=== PATIENT | female | born 1975 | race Two or more races ===

== ENCOUNTER 2021-05-18 01:49 | Inpatient (IN) | payer SELFPAY ==
[2021-05-18] VITALS (11 sets, daily range): BP systolic 101–122; BP diastolic 51–67
[~2021-05-18] VITALS: Ht 162.6 cm; Wt 94.0 kg
[~2021-05-18 01:49] MED LIST: FERR236T2 PO; IRON150C11 PO; OXYC1TAB15 PO
--- NOTE | 2021-05-18 02:52 | ED.ADGEN ---
Past Medical History Past Medical History: No Pertinent History Past Surgical History: No Surgical History Smoking Status: Never Smoker Alcohol Use: None General Adult EDM: Chief Complaint: ABDOMINAL PAIN HPI: HPI: Patient is a 46 year old female coming in for upper abdominal pain that radiates around the sides starting about 3 hours prior to arrival. Few episodes of emesis. No diarrhea. Patient's last p.o. intake was a sandwich about 2.5 hours prior to symptom onset. Patient is not take anything for pain. Denies any daily NSAID use, alcohol or tobacco use. Patient states that this time when she had blood spicy. No past abdominal surgical history. Review of Systems: Review of Systems: All other systems within normal limits except for as noted in the HPI Current Medications: Current Medications Medications (Trade) Dose Ordered Sig/Brock Start Time Stop Time Status Last Admin Dose Admin Fentanyl Citrate (Fentanyl 2ml Vial) 75 mcg 1X ONCE 05/18/21 03:30 05/18/21 03:31 DC 05/18/21 03:07 75 MCG Info (CONTRAST GIVEN -- Rx MONITORING) 1 each PRN DAILY PRN 05/18/21 04:15 05/20/21 04:14 Iohexol (Omnipaque 300 Mg/ml) 75 ml 1X ONCE 05/18/21 05:00 05/18/21 05:01 DC 05/18/21 04:10 75 ML Multi-Ingredient Mouthwash/Gargle (Gi Cocktail) 20 ml 1X ONCE 05/18/21 03:30 05/18/21 03:31 DC 05/18/21 03:09 20 ML Ondansetron HCl (Zofran) 4 mg 1X ONCE 05/18/21 03:30 05/18/21 03:31 DC 05/18/21 03:08 4 MG Sodium Chloride 1,000 ml @ 1,000 mls/hr 1X ONCE 05/18/21 03:30 05/18/21 04:29 DC 05/18/21 03:07 1,000 MLS/HR Allergies: Allergies: Allergies Coded Allergies Type Severity Reaction Last Updated Verified No Known Drug Allergies 05/31/19 No Physical Exam: PE: Constitutional: Well developed, well nourished, no acute distress, non-toxic appearance. [] HENT: Normocephalic, atraumatic, bilateral external ears normal, nose normal. [] Eyes: PERRLA, conjunctiva normal, no discharge. [] Neck: No rigidity, supple, no stridor. [] Cardiovascular: Regular rate and rhythm, brisk cap refill [] Lungs & Thorax: Non labored symmetric respirations, no tachypnea or respiratory distress [] Abdomen: Soft, nondistended, epigastric tenderness and guarding, unable to tolerate Vaughan's sign. Skin: Warm, dry, no erythema, no rash. [] Back: Unremarkable Extremities: No deformities, range of motion grossly intact, no lower extremity edema [] Neurologic: Alert and oriented X 3, no focal deficits noted. [] Psychologic: Affect normal, judgement normal, mood normal. [] Current Patient Data: Labs: Laboratory Tests Test 05/18/21 02:30 05/18/21 02:31 05/18/21 03:00 Urine Collection Type Unknown Urine Color Yellow Urine Clarity Clear Urine pH 7.5 (<5.0-8.0) Urine Specific [place] 1.020 (1.000-1.030) Urine Protein Trace mg/dL (NEG-TRACE) Urine Glucose (UA) Negative mg/dL (NEG) Urine Ketones (Stick) Trace mg/dL (NEG) Urine Blood Negative (NEG) Urine Nitrite Negative (NEG) Urine Bilirubin Negative (NEG) Urine Urobilinogen Dipstick 0.2 mg/dL (0.2 mg/dL) Urine Leukocyte Esterase Negative (NEG) Urine RBC 0 /HPF (0-2) Urine WBC Occ /HPF (0-4) Urine Squamous Epithelial Cells Mod /LPF Urine Bacteria Few /HPF (0-FEW) Urine Mucus Mod /LPF POC Urine HCG, Qualitative Hcg negative (Negative) White Blood Count 7.1 x10^3/uL (4.0-11.0) Red Blood Count 3.92 x10^6/uL (3.50-5.40) Hemoglobin 5.6 g/dL (12.0-15.5) *L Hematocrit 20.5 % (36.0-47.0) L Mean Corpuscular Volume 52 fL (79-100) L Mean Corpuscular Hemoglobin 14 pg (25-35) L Mean Corpuscular Hemoglobin Concent 27 g/dL (31-37) L Red Cell Distribution Width 22.6 % (11.5-14.5) H Platelet Count 190 x10^3/uL (140-400) Neutrophils (%) (Auto) 81 % (31-73) H Lymphocytes (%) (Auto) 14 % (24-48) L Monocytes (%) (Auto) 4 % (0-9) Eosinophils (%) (Auto) 0 % (0-3) Basophils (%) (Auto) 1 % (0-3) Neutrophils # (Auto) 5.7 x10^3/uL (1.8-7.7) Lymphocytes # (Auto) 1.0 x10^3/uL (1.0-4.8) Monocytes # (Auto) 0.3 x10^3/uL (0.0-1.1) Eosinophils # (Auto) 0.0 x10^3/uL (0.0-0.7) Basophils # (Auto) 0.0 x10^3/uL (0.0-0.2) Platelet Estimate Adequate (ADEQUATE) Giant Platelets Occ Polychromasia Slight Hypochromasia Marked Basophilic Stippling Present Anisocytosis Mod Microcytosis Marked Tear Drop Cells Occ Ovalocytes Occ Rouleaux Present Sodium Level 140 mmol/L (136-145) Potassium Level 3.3 mmol/L (3.5-5.1) L Chloride Level 103 mmol/L (98-107) Carbon Dioxide Level 27 mmol/L (21-32) Anion Gap 10 (6-14) Blood Urea Nitrogen 14 mg/dL (7-20) Creatinine 0.8 mg/dL (0.6-1.0) Estimated GFR (Cockcroft-Gault) 77.6 BUN/Creatinine Ratio 18 (6-20) Glucose Level 155 mg/dL (70-99) H Lactic Acid Level 1.8 mmol/L (0.4-2.0) Calcium Level 8.5 mg/dL (8.5-10.1) Iron Level 9 ug/dL (50-170) L Total Iron Binding Capacity 435 ug/dL (250-450) Iron Saturation 2 % (15-34) L Total Bilirubin 0.4 mg/dL (0.2-1.0) Aspartate Amino Transferase (AST) 40 U/L (15-37) H Alanine Aminotransferase (ALT) 35 U/L (14-59) Alkaline Phosphatase 85 U/L (46-116) Total Protein 7.1 g/dL (6.4-8.2) Albumin 3.1 g/dL (3.4-5.0) L Albumin/Globulin Ratio 0.8 (1.0-1.7) L Lipase 200 U/L (73-393) Laboratory Tests 05/18/21 03:00 Laboratory Tests 05/18/21 03:00 Vital Signs: Vital Signs Date Time Temp Pulse Resp B/P (MAP) Pulse Ox O2 Delivery O2 Flow Rate FiO2 05/18/21 04:53 64 16 105/62 (76) 100 Room Air 05/18/21 02:10 98.1 98.1 EKG: EKG: [] Heart Score: C/O Chest Pain: No Risk Factors: Risk Factors: DM, Current or recent (<one month) smoker, HTN, HLP, family history of CAD, obesity. Risk Scores: Score 0 - 3: 2.5% MACE over next 6 weeks - Discharge Home Score 4 - 6: 20.3% MACE over next 6 weeks - Admit for Clinical Observation Score 7 - 10: 72.7% MACE over next 6 weeks - Early Invasive Strategies Radiology/Procedures: Radiology/Procedures: [facility] [address] [place] [address] IMAGING REPORT Signed PATIENT: RHONA GAN FACCOUNT: [id number] : 1975 LOCATION: ER AGE: 46 SEX: F EXAM STATUS: REG ER ORD. PHYSICIAN: STEHPEN WORKMAN MD REASON: upper abd pain and emesis, OMNI 300 75 ML IV PROCEDURE: CT ABD PELV W/ IV CONTRST ONLY EXAMINATION: CT abdomen and pelvis with IV contrast. INDICATION:46 years, Female, upper abdominal pain. TECHNIQUE: Axial CT images of the abdomen and pelvis were obtained. Coronal and sagittal reformatted performed. COMPARISON: None. Exposure: One or more of the following individualized dose reduction techniques were utilized for this examination: 1. Automated exposure control 2. Adjustment of the mA and/or kV according to patient size 3. Use of iterative reconstruction technique. FINDINGS: LOWER CHEST: Unremarkable. ABDOMEN/PELVIS: Gallbladder hydrops with mild asymmetric wall thickening and submucosal edema. There is a partially calcified 1.7 cm cholelithiasis in the gallbladder neck. No significant pericholecystic fat stranding. No biliary ductal dilation. Mild periportal edema. No suspicious focal hepatic lesion. Spleen, pancreas, adrenal glands and kidneys are unremarkable. No bowel obstruction. Normal appendix. Normal caliber abdominal aorta. Mesenteric arteries and portal veins are patent. No pneumoperitoneum or ascites. No lymphadenopathy in the abdomen or pelvis by size criteria. Unremarkable uterus and urinary bladder. Benign-appearing 4.5 cm right adnexal cyst. MUSCULOSKELETAL STRUCTURES: No acute osseous process. IMPRESSION: 1. Overall findings may represent early acute calculus cholecystitis. Other differential consideration includes acute hepatitis with reactive changes of the gallbladder. Clinical correlation is advised and may consider nuclear HIDA scan, as warranted. 2. Benign-appearing 4.5 cm right adnexal cyst. Benign, no follow-up required. White paper of the ACR incidental findings, committe II on adnexal findings ((J Am Kathe Radiol 2013;10:675-68) Electronically signed by: Nathan Galaviz MD (05/18/2021 4:32 AM) [facility] DICTATED and SIGNED BY: NATHAN GALAVIZ MD DATE: 05/18/21 [id number] [][facility] [address] [place] [address] IMAGING REPORT Signed PATIENT: RHONA GAN FACCOUNT: [id number] : 1975 LOCATION: ER AGE: 46 SEX: F EXAM STATUS: REG ER ORD. PHYSICIAN: STEPHEN WORKMAN MD REASON: acute cholecystitis PROCEDURE: ABDOMEN LTD EXAMINATION: US ABDOMEN LIMITED INDICATION: 46 years, Female, acute cholecystitis. COMPARISON: Same day CT abdomen and pelvis TECHNIQUE: Grayscale, color Doppler and limited spectral Doppler images of the right upper quadrant were obtained. FINDINGS: LIVER: SIZE (LENGTH): 15 cm. ECHOGENICITY: Normal PARENCHYMA: Homogeneous echotexture. No discrete focal lesion. INTRAHEPATIC BILE DUCTS: Nondilated. PORTAL VEIN: Patent with normal hepatopedal flow. GALLBLADDER: GALLBLADDER WALL THICKNESS: 6 mm MORPHOLOGY: Gallbladder hydrops. Asymmetric wall thickening. No significant pericholecystic free fluid. LUMEN: Cholelithiasis the gallbladder neck. COMMON BILE DUCT DIAMETER: 2.5 mm. RIGHT KIDNEY: MEASURES: 12.5 cm in length. MORPHOLOGY/PARENCHYMA: Normal corticomedullary differentiation with no shadowing calculus or discrete masses. COLLECTING SYSTEM: No hydronephrosis. PANCREAS: VISUALIZED PORTIONS: Head and proximal body. APPEARANCE: Within normal limits. OTHER: RETROPERITONEUM, INFERIOR VENA CAVA: Normal caliber. AORTA: Normal caliber. FLUID:No free fluid. IMPRESSION: Gallbladder hydrops with asymmetric wall thickening and large cholelithiasis the neck. No significant pericholecystic fluid. Findings equivocal for acute calculus cholecystitis. Electronically signed by: Nathan Galaviz MD (05/18/2021 5:36 AM) [facility] DICTATED and SIGNED BY: NATHAN GALAVIZ MD DATE: 05/18/21 [id number] 0 Course & Med Decision Making: Course & Med Decision Making Pertinent Labs and Imaging studies reviewed. (See chart for details) Resolve CT and ultrasound findings suggest a possible early acute cholecystitis. Will admit for blood transfusion and further evaluation of gallbladder [] Dragon Disclaimer: Dragon Disclaimer: This electronic medical record was generated, in whole or in part, using a voice recognition dictation system. Departure Departure Impression: Primary Impression: Anemia Additional Impression: Acute cholecystitis Disposition: ADMITTED INPATIENT Admitting Physician: NAOMIE Condition: STABLE Referrals: NO PCP (PCP) Problem Qualifiers STEPHEN WORKMAN MD May 18, 2021 02:52
[2021-05-18 02:59] LABS: BILIRUBIN,URINE NEGATIVE (NEG); CLARITY,URINE CLEAR; COLOR,URINE YELLOW; NITRITE,URINE NEGATIVE (NEG); PH,URINE 7.5 (<5.0-8.0); PROTEIN,URINE TRACE mg/dL (NEG-TRACE); UROBILINOGEN,URINE 0.2 mg/dL (0.2 mg/dL)
[2021-05-18 03:01] LABS: BACTERIA,URINE FEW /HPF (0-FEW); RBC,URINE 0 /HPF (0-2); WBC,URINE OCC /HPF (0-4)
[2021-05-18 03:08] LABS: BASO % 1 % (0-3); EOS % 0 % (0-3); HEMATOCRIT 20.5 % (36.0-47.0); LYMPH % 14 % (24-48); MEAN CORPUSCULAR HEMOGLOBIN 14 pg (25-35); MEAN CORPUSCULAR HGB CONC 27 g/dL (31-37); MEAN CORPUSCULAR VOLUME 52 fL (79-100); MONO # 0.3 x10^3/uL (0.0-1.1); MONO % 4 % (0-9); NEUT # 5.7 x10^3/uL (1.8-7.7); NEUT % 81 % (31-73); PLATELET COUNT 190 x10^3/uL (140-400); RED BLOOD COUNT 3.92 x10^6/uL (3.50-5.40); RED CELL DISTRIBUTION WIDTH 22.6 % (11.5-14.5); WHITE BLOOD COUNT 7.1 x10^3/uL (4.0-11.0)
[2021-05-18 03:15] LABS: HEMOGLOBIN 5.6 g/dL (12.0-15.5)
[2021-05-18 03:26] LABS: CALCIUM 8.5 mg/dL (8.5-10.1); CREATININE 0.8 mg/dL (0.6-1.0); GFR 77.6; POTASSIUM 3.3 mmol/L (3.5-5.1)
[2021-05-18] MEDS ORDERED: ONDANSETRON PF 4 MG/2 ML VIAL. IVP ONE (03:30)
[2021-05-18] MEDS ORDERED: IV NORMAL SALINE 1000ML BAG 1,000 ML IV ONE (03:30)
[2021-05-18] MEDS ORDERED: fentaNYL PF VIAL 100 MCG/2 ML VIAL IVP ONE (03:30)
[2021-05-18] MEDS ORDERED: LIDO:MAALOX 1:1 20 ML SINGLE DOSE. SWSW ONE (03:30)
[2021-05-18 03:31] LABS: ALBUMIN 3.1 g/dL (3.4-5.0); ALBUMIN/GLOBULIN RATIO 0.8 (1.0-1.7); TOTAL BILIRUBIN 0.4 mg/dL (0.2-1.0); TOTAL PROTEIN 7.1 g/dL (6.4-8.2)
[2021-05-18] MEDS ORDERED: CONTRAST GIVEN. MC PRN (04:15)
--- NOTE | 2021-05-18 04:34 | RAD ---
EXAMINATION: CT abdomen and pelvis with IV contrast. INDICATION:46 years, Female, upper abdominal pain. TECHNIQUE: Axial CT images of the abdomen and pelvis were obtained. Coronal and sagittal reformatted performed. COMPARISON: None. Exposure: One or more of the following individualized dose reduction techniques were utilized for thi s examination: 1. Automated exposure control 2. Adjustment of the mA and/or kV according to patient size 3. Use of iterative reconstruction technique. FINDINGS: LOWER CHEST: Unremarkable. ABDOMEN/PELVIS: Gallbladder hydrops with mild asymmetric wall thickening and submucosal edema. There is a partially c alcified 1.7 cm cholelithiasis in the gallbladder neck. No significant pericholecystic fat stranding. No biliary ductal dilation. Mild periportal edema. No suspicious focal hepatic lesion. Spleen, pancreas, adrenal glands and kidneys are unremarkable. No bowel obstruction. Normal appendix. Normal caliber abdominal aorta. Mesenteric arteries and portal v eins are patent. No pneumoperitoneum or ascites. No lymphadenopathy in the abdomen or pelvis by size criteria. Unremarkable uterus and urinary bladder. Benign-appearing 4.5 cm right adnexal cyst. MUSCULOSKELETAL STRUCTURES: No acute osseous process. IMPRESSION: 1. Overall findings may represent early acute calculus cholecystitis. Other differential considerati on includes acute hepatitis with reactive changes of the gallbladder. Clinical correlation is advised and may consider nuclear HIDA scan, as warranted. 2. Benign-appearing 4.5 cm right adnexal cyst. Benign, no follow-up required. White paper of the ACR incidental findings, committe II on adnexal findings ((J Am Kathe Radiol 2013;1 0:675-68) Electronically signed by: Evelio Galaviz MD (05/18/2021 4:32 AM) [facility]
[2021-05-18 04:44] LABS: ANISOCYTOSIS MOD; HYPOCHROMIA MARKED; PLT ESTIMATE ADEQUATE (ADEQUATE); POLYCHROMASIA SLIGHT
[2021-05-18 04:45] LABS: MICROCYTOSIS MARKED
[2021-05-18 04:46] LABS: OVALOCYTES OCC; ROULEAUX PRESENT; TEAR DROP CELLS OCC
[2021-05-18] MEDS ORDERED: IOHEXOL 300 MG/ML 100ML VIAL. IV ONE (05:00)
--- NOTE | 2021-05-18 05:38 | RAD ---
EXAMINATION: US ABDOMEN LIMITED INDICATION: 46 years, Female, acute cholecystitis. COMPARISON: Same day CT abdomen and pelvis TECHNIQUE: Grayscale, color Doppler and limited spectral Doppler images of the right upper quadrant w ere obtained. FINDINGS: LIVER: SIZE (LENGTH): 15 cm. ECHOGENICITY: Normal PARENCHYMA: Homogeneous echotexture. No discrete focal lesion. INTRAHEPATIC BILE DUCTS: Nondilated. PORTAL VEIN: Patent with normal hepatopedal flow. GALLBLADDER: GALLBLADDER WALL THICKNESS: 6 mm MORPHOLOGY: Gallbladder hydrops. Asymmetric wall thickening. No significant pericholecystic free flui d. LUMEN: Cholelithiasis the gallbladder neck. COMMON BILE DUCT DIAMETER: 2.5 mm. RIGHT KIDNEY: MEASURES: 12.5 cm in length. MORPHOLOGY/PARENCHYMA: Normal corticomedullary differentiation with no shadowing calculus or discrete masses. COLLECTING SYSTEM: No hydronephrosis. PANCREAS: VISUALIZED PORTIONS: Head and proximal body. APPEARANCE: Within normal limits. OTHER: RETROPERITONEUM, INFERIOR VENA CAVA: Normal caliber. AORTA: Normal caliber. FLUID:No free fluid. IMPRESSION: Gallbladder hydrops with asymmetric wall thickening and large cholelithiasis the neck. No significant pericholecystic fluid. Findings equivocal for acute calculus cholecystitis. Electronically signed by: Evelio Galaviz MD (05/18/2021 5:36 AM) [facility]
[2021-05-18] MEDS ORDERED: ONDANSETRON PF 4 MG/2 ML VIAL. IVP PRN ×2 (05:45→10:15)
[2021-05-18] MEDS ORDERED: MORPHINE SULFATE 4 MG/ML INJ. IVP PRN (05:45)
[2021-05-18] MEDS ORDERED: PIPERACILLIN/TAZOBACTAM 3.375 GM in IV NORMAL SALINE 50ML 50 ML IV ONE (06:00)
[2021-05-18] MEDS: IV NORMAL SALINE 1000ML BAG 1,000 ML IV SCH (06:32)
[2021-05-18] MEDS ORDERED: MORPHINE SULFATE 2 MG/ML INJ. IV PRN ×2 (10:15)
[2021-05-18] MEDS ORDERED: ELECTROLYTE (NON-ICU) PROTOCOL. MC PRN (10:15)
[2021-05-18] MEDS ORDERED: ACETAMINOPHEN 325 MG TABLET. PO PRN (10:15)
[2021-05-18] MEDS ORDERED: ZOLPIDEM 5 MG TABLET. PO PRN (10:15)
[2021-05-18] MEDS ORDERED: PIP/TAZO PER PHARMACY MC PRN (10:15)
[2021-05-18] MEDS ORDERED: CALCIUM CARBONATE 500 MG TAB.CHEW PO PRN (10:15)
[2021-05-18] MEDS ORDERED: PROCHLORPERAZINE 10 MG/2 ML VIAL. IVP PRN (10:15)
[2021-05-18] MEDS: IRON POLYSACCHARIDE COMPLEX 150 MG CAPSULE PO SCH (11:07)
[2021-05-18] MEDS: PIPERACILLIN/TAZOBACTAM 3.375 GM in IV NORMAL SALINE 50ML 50 ML IV SCH ×2 (11:07→19:11)
[2021-05-18] MEDS: PANTOPRAZOLE IV PUSH 40 MG VIAL. IVP SCH (11:08)
--- NOTE | 2021-05-18 14:01 | PDOC2 ---
CONSULT Date of Consult Date of Consult DATE: 05/18/21 TIME: 13:55 Reason for Consult Reason for Consult: Upper abdominal pain, cholelithiasis, anemia History of Present Illness Reason for Visit: This is a 46-year-old female who presents with new onset of upper abdominal pain after eating yesterday. She claims she never had pain like this before. It did not resolve quickly and so she came to the emergency room. Imaging studies reveal a gallstone and some features of cholecystitis. Biliary tract otherwise appears normal. Liver function studies were normal. However the most profound abnormality was hemoglobin of 5.6. With significant microcytic indices and low iron suggestive of a chronic anemia. She relates that she has been anemic in the past with pregnancies. She is not taking any medications presently for anemia. She has never had a blood transfusion as far she remembers. She denies any hematemesis, melena, hematochezia, hematuria but does admit to regular menstrual periods. Past Medical History Cardiovascular: No pertinent hx Pulmonary: No pertinent hx Heme/Onc: Anemia NOS Infectious disease: No pertinent hx Family History Family History: Hypertension Social History ALCOHOL: none Drugs: None Current Problem List Problem List Problems Medical Problems: (1) Anemia affecting 10th Status: Acute Current Medications Current Medications Current Medications Ondansetron HCl (Zofran) 4 mg 1X ONCE IVP Last administered on 05/18/21at 03:08; Start 05/18/21 at 03:30; Stop 05/18/21 at 03:31; Status DC Fentanyl Citrate (Fentanyl 2ml Vial) 75 mcg 1X ONCE IVP Last administered on 05/18/21at 03:07; Start 05/18/21 at 03:30; Stop 05/18/21 at 03:31; Status DC Sodium Chloride 1,000 ml @ 1,000 mls/hr 1X ONCE IV Last administered on 05/18/21at 03:07; Start 05/18/21 at 03:30; Stop 05/18/21 at 04:29; Status DC Multi-Ingredient Mouthwash/Gargle (Gi Cocktail) 20 ml 1X ONCE SWSW Last administered on 05/18/21at 03:09; Start 05/18/21 at 03:30; Stop 05/18/21 at 03:31; Status DC Iohexol (Omnipaque 300 Mg/ml) 75 ml 1X ONCE IV Last administered on 05/18/21at 04:10; Start 05/18/21 at 05:00; Stop 05/18/21 at 05:01; Status DC Info (CONTRAST GIVEN -- Rx MONITORING) 1 each PRN DAILY PRN MC SEE COMMENTS; Start 05/18/21 at 04:15; Stop 05/20/21 at 04:14 Ondansetron HCl (Zofran) 4 mg PRN Q8HRS PRN IVP NAUSEA/VOMITING 1ST CHOICE; Start 05/18/21 at 05:45; Stop 05/18/21 at 10:13; Status DC Morphine Sulfate (Morphine Sulfate) 4 mg PRN Q2HR PRN IVP SEVERE PAIN 7-10; Start 05/18/21 at 05:45; Stop 05/18/21 at 10:13; Status DC Sodium Chloride 1,000 ml @ 100 mls/hr Q10H IV Last administered on 05/18/21at 06:32; Start 05/18/21 at 06:00; Stop 05/19/21 at 05:59 Piperacillin Sod/ Tazobactam Sod 3.375 gm/Sodium Chloride 50 ml @ 100 mls/hr 1X ONCE IV Last administered on 05/18/21at 06:32; Start 05/18/21 at 06:00; Stop 05/18/21 at 06:29; Status DC Pantoprazole Sodium (PROTONIX VIAL for IV PUSH) 40 mg DAILYAC IVP Last administered on 05/18/21at 11:08; Start 05/18/21 at 10:15 Piperacillin Sod/ Tazobactam Sod (Zosyn Per Pharmacy) 1 each PRN DAILY PRN MC SEE COMMENTS; Start 05/18/21 at 10:15 Ondansetron HCl (Zofran) 4 mg PRN Q6HRS PRN IVP NAUSEA/VOMITING, 1st CHOICE; Start 05/18/21 at 10:15 Prochlorperazine Edisylate (Compazine) 10 mg PRN Q6HRS PRN IVP NAUSEA/VOMITING, 2ND CHOICE; Start 05/18/21 at 10:15 Calcium Carbonate/ Glycine (Tums) 500 mg PRN Q3HRS PRN PO UPSET STOMACH; Start 05/18/21 at 10:15 Zolpidem Tartrate (Ambien) 5 mg PRN QHS PRN PO INSOMNIA, MAY REPEAT IN 1HR; Start 05/18/21 at 10:15 Info (Non-Icu Electrolyte Protocol) 1 ea PRN DAILY PRN MC SEE COMMENTS; Start 05/18/21 at 10:15 Morphine Sulfate (Morphine Sulfate) 1 mg PRN Q1HR PRN IV MODERATE PAIN; Start 05/18/21 at 10:15 Morphine Sulfate (Morphine Sulfate) 2 mg PRN Q1HR PRN IV SEVERE PAIN; Start 05/18/21 at 10:15 Acetaminophen (Tylenol) 650 mg PRN Q6HRS PRN PO Headaches, Temp > 101.5F; Start 05/18/21 at 10:15 Senna/Docusate Sodium (Senna Plus) 1 tab BID PO ; Start 05/18/21 at 21:00 Polysaccharide Iron Complex (Niferex 150) 150 mg DAILY PO Last administered on 05/18/21at 11:07; Start 05/18/21 at 11:00 Piperacillin Sod/ Tazobactam Sod 3.375 gm/Sodium Chloride 50 ml @ 100 mls/hr Q6HRS IV Last administered on 05/18/21at 11:07; Start 05/18/21 at 12:00 Active Scripts Active Percocet 5-325 Mg Tablet (Oxycodone/Acetaminophen) 1 Each Tablet 1 Tab PO PRN Q4HRS PRN 3 Days Poly-Iron (Iron Polysaccharides Complex) 150 Mg Capsule 150 Mg PO DAILY 30 Days Reported Iron (Ferrous Gluconate) 236 Mg Tablet 1 Tab PO DAILY 30 Days Allergies Allergies: Coded Allergies: No Known Drug Allergies (Unverified , 05/31/19) Physical Exam General: Alert, Oriented X3, Cooperative HEENT: Atraumatic Lungs: Clear to auscultation Heart: Regular rate, Normal S1, Normal S2 Abdomen: Normal bowel sounds, Soft, No tenderness, No hepatosplenomegaly, No masses Extremities: No clubbing, No cyanosis Neuro: Normal speech Psych/Mental Status: Mental status NL Vitals VITALS Vital Signs Date Time Temp Pulse Resp B/P (MAP) Pulse Ox O2 Delivery O2 Flow Rate FiO2 05/18/21 13:27 98.2 62 18 101/54 98.2 05/18/21 11:01 97 Room Air Labs Labs Laboratory Tests Test 05/18/21 02:30 05/18/21 02:31 05/18/21 03:00 Urine Collection Type Unknown Urine Color Yellow Urine Clarity Clear Urine pH 7.5 (<5.0-8.0) Urine Specific [place] 1.020 (1.000-1.030) Urine Protein Trace mg/dL (NEG-TRACE) Urine Glucose (UA) Negative mg/dL (NEG) Urine Ketones (Stick) Trace mg/dL (NEG) Urine Blood Negative (NEG) Urine Nitrite Negative (NEG) Urine Bilirubin Negative (NEG) Urine Urobilinogen Dipstick 0.2 mg/dL (0.2 mg/dL) Urine Leukocyte Esterase Negative (NEG) Urine RBC 0 /HPF (0-2) Urine WBC Occ /HPF (0-4) Urine Squamous Epithelial Cells Mod /LPF Urine Bacteria Few /HPF (0-FEW) Urine Mucus Mod /LPF Bedside Urine HCG, Qualitative Hcg negative (Negative) White Blood Count 7.1 x10^3/uL (4.0-11.0) Red Blood Count 3.92 x10^6/uL (3.50-5.40) Hemoglobin 5.6 g/dL (12.0-15.5) Hematocrit 20.5 % (36.0-47.0) Mean Corpuscular Volume 52 fL (79-100) Mean Corpuscular Hemoglobin 14 pg (25-35) Mean Corpuscular Hemoglobin Concent 27 g/dL (31-37) Red Cell Distribution Width 22.6 % (11.5-14.5) Platelet Count 190 x10^3/uL (140-400) Neutrophils (%) (Auto) 81 % (31-73) Lymphocytes (%) (Auto) 14 % (24-48) Monocytes (%) (Auto) 4 % (0-9) Eosinophils (%) (Auto) 0 % (0-3) Basophils (%) (Auto) 1 % (0-3) Neutrophils # (Auto) 5.7 x10^3/uL (1.8-7.7) Lymphocytes # (Auto) 1.0 x10^3/uL (1.0-4.8) Monocytes # (Auto) 0.3 x10^3/uL (0.0-1.1) Eosinophils # (Auto) 0.0 x10^3/uL (0.0-0.7) Basophils # (Auto) 0.0 x10^3/uL (0.0-0.2) Platelet Estimate Adequate (ADEQUATE) Giant Platelets Occ Polychromasia Slight Hypochromasia Marked Basophilic Stippling Present Anisocytosis Mod Microcytosis Marked Tear Drop Cells Occ Ovalocytes Occ Rouleau Present Sodium Level 140 mmol/L (136-145) Potassium Level 3.3 mmol/L (3.5-5.1) Chloride Level 103 mmol/L (98-107) Carbon Dioxide Level 27 mmol/L (21-32) Anion Gap 10 (6-14) Blood Urea Nitrogen 14 mg/dL (7-20) Creatinine 0.8 mg/dL (0.6-1.0) Estimated GFR (Cockcroft-Gault) 77.6 BUN/Creatinine Ratio 18 (6-20) Glucose Level 155 mg/dL (70-99) Lactic Acid Level 1.8 mmol/L (0.4-2.0) Calcium Level 8.5 mg/dL (8.5-10.1) Iron Level 9 ug/dL (50-170) Total Iron Binding Capacity 435 ug/dL (250-450) Iron Saturation 2 % (15-34) Total Bilirubin 0.4 mg/dL (0.2-1.0) Aspartate Amino Transf (AST/SGOT) 40 U/L (15-37) Alanine Aminotransferase (ALT/SGPT) 35 U/L (14-59) Alkaline Phosphatase 85 U/L (46-116) Total Protein 7.1 g/dL (6.4-8.2) Albumin 3.1 g/dL (3.4-5.0) Albumin/Globulin Ratio 0.8 (1.0-1.7) Lipase 200 U/L (73-393) Laboratory Tests Test 05/18/21 02:30 05/18/21 02:31 05/18/21 03:00 Urine Collection Type Unknown Urine Color Yellow Urine Clarity Clear Urine pH 7.5 (<5.0-8.0) Urine Specific [place] 1.020 (1.000-1.030) Urine Protein Trace mg/dL (NEG-TRACE) Urine Glucose (UA) Negative mg/dL (NEG) Urine Ketones (Stick) Trace mg/dL (NEG) Urine Blood Negative (NEG) Urine Nitrite Negative (NEG) Urine Bilirubin Negative (NEG) Urine Urobilinogen Dipstick 0.2 mg/dL (0.2 mg/dL) Urine Leukocyte Esterase Negative (NEG) Urine RBC 0 /HPF (0-2) Urine WBC Occ /HPF (0-4) Urine Squamous Epithelial Cells Mod /LPF Urine Bacteria Few /HPF (0-FEW) Urine Mucus Mod /LPF Bedside Urine HCG, Qualitative Hcg negative (Negative) White Blood Count 7.1 x10^3/uL (4.0-11.0) Red Blood Count 3.92 x10^6/uL (3.50-5.40) Hemoglobin 5.6 g/dL (12.0-15.5) Hematocrit 20.5 % (36.0-47.0) Mean Corpuscular Volume 52 fL (79-100) Mean Corpuscular Hemoglobin 14 pg (25-35) Mean Corpuscular Hemoglobin Concent 27 g/dL (31-37) Red Cell Distribution Width 22.6 % (11.5-14.5) Platelet Count 190 x10^3/uL (140-400) Neutrophils (%) (Auto) 81 % (31-73) Lymphocytes (%) (Auto) 14 % (24-48) Monocytes (%) (Auto) 4 % (0-9) Eosinophils (%) (Auto) 0 % (0-3) Basophils (%) (Auto) 1 % (0-3) Neutrophils # (Auto) 5.7 x10^3/uL (1.8-7.7) Lymphocytes # (Auto) 1.0 x10^3/uL (1.0-4.8) Monocytes # (Auto) 0.3 x10^3/uL (0.0-1.1) Eosinophils # (Auto) 0.0 x10^3/uL (0.0-0.7) Basophils # (Auto) 0.0 x10^3/uL (0.0-0.2) Platelet Estimate Adequate (ADEQUATE) Giant Platelets Occ Polychromasia Slight Hypochromasia Marked Basophilic Stippling Present Anisocytosis Mod Microcytosis Marked Tear Drop Cells Occ Ovalocytes Occ Rouleau Present Sodium Level 140 mmol/L (136-145) Potassium Level 3.3 mmol/L (3.5-5.1) Chloride Level 103 mmol/L (98-107) Carbon Dioxide Level 27 mmol/L (21-32) Anion Gap 10 (6-14) Blood Urea Nitrogen 14 mg/dL (7-20) Creatinine 0.8 mg/dL (0.6-1.0) Estimated GFR (Cockcroft-Gault) 77.6 BUN/Creatinine Ratio 18 (6-20) Glucose Level 155 mg/dL (70-99) Lactic Acid Level 1.8 mmol/L (0.4-2.0) Calcium Level 8.5 mg/dL (8.5-10.1) Iron Level 9 ug/dL (50-170) Total Iron Binding Capacity 435 ug/dL (250-450) Iron Saturation 2 % (15-34) Total Bilirubin 0.4 mg/dL (0.2-1.0) Aspartate Amino Transf (AST/SGOT) 40 U/L (15-37) Alanine Aminotransferase (ALT/SGPT) 35 U/L (14-59) Alkaline Phosphatase 85 U/L (46-116) Total Protein 7.1 g/dL (6.4-8.2) Albumin 3.1 g/dL (3.4-5.0) Albumin/Globulin Ratio 0.8 (1.0-1.7) Lipase 200 U/L (73-393) Images Images CT scan FINDINGS: LOWER CHEST: Unremarkable. ABDOMEN/PELVIS: Gallbladder hydrops with mild asymmetric wall thickening and submucosal edema. There is a partially calcified 1.7 cm cholelithiasis in the gallbladder neck. No significant pericholecystic fat stranding. No biliary ductal dilation. Mild periportal edema. No suspicious focal hepatic lesion. Spleen, pancreas, adrenal glands and kidneys are unremarkable. No bowel obstruction. Normal appendix. Normal caliber abdominal aorta. Mesenteric arteries and portal veins are patent. No pneumoperitoneum or ascites. No lymphadenopathy in the abdomen or pelvis by size criteria. Unremarkable uterus and urinary bladder. Benign-appearing 4.5 cm right adnexal cyst. MUSCULOSKELETAL STRUCTURES: No acute osseous process. IMPRESSION: 1. Overall findings may represent early acute calculus cholecystitis. Other differential consideration includes acute hepatitis with reactive changes of the gallbladder. Clinical correlation is advised and may consider nuclear HIDA scan, as warranted. 2. Benign-appearing 4.5 cm right adnexal cyst. Benign, no follow-up required. White paper of the ACR incidental findings, committe II on adnexal findings ((J Am Kathe Radiol 2013;10:675-68) Assessment/Plan Assessment/Plan Acute abdominal pain after eating. No prior history of similar pain, dyspepsia or heartburn symptoms. No history of GI bleeding. Imaging studies suggest cho lelithiasis with probable cholecystitis. However her pain now has resolved. Her examination is benign. Anemia. Significant anemia with hemoglobin 5.6 and microcytic indices suggesting a chronic iron deficiency. She denies any GI bleeding but does have regular menstrual periods without iron supplementation. Plan: Since she does not have chronic peptic symptoms, I would not recommend regular PPI at this time. However since her symptoms have resolved urgent surgical intervention is probably not warranted but a consultation is certainly reasonable and evaluating for future cholecystectomy. Transfusion as ordered. She is a candidate for elective GI work-up with EGD particularly colonoscopy since she is 46 years of age. However most of her bleeding and anemia appear related to menses without proper iron supplementation. We would recommend iron infusion on this occasion and oral iron in the outpatient setting. She also needs to have a PCP to monitor her labs in the outpatient setting. If she is tolerating an oral diet and surgery is not planned, then early discharge is reasonable SHAWN VEGA MD May 18, 2021 14:01
--- NOTE | 2021-05-18 15:03 | PDOC2 ---
CONSULT Date of Consult Date of Consult DATE: 05/18/21 TIME: 14:59 Reason for Consult Reason for Consult: symptomatic cholelithiasis Referring Physician Referring Physician: Dr. Fallon Identification/Chief Complaint Chief Complaint RUQ abd pain Source Source: Chart review, Patient History of Present Illness Reason for Visit: 46 yo F with c/o RUQ abd pain, radiating to her back. Sudden onset, no previous episodes. Pain now resolved. Notes to have heavy menses over last few weeks. Past Medical History Cardiovascular: No pertinent hx Pulmonary: No pertinent hx Heme/Onc: Anemia NOS Infectious disease: No pertinent hx Past Surgical History Past Surgical History: No pertinent history Family History Family History: Hypertension Social History ALCOHOL: none Drugs: None Current Problem List Problem List Problems Medical Problems: (1) Anemia affecting 10th Status: Acute Current Medications Current Medications Current Medications Ondansetron HCl (Zofran) 4 mg 1X ONCE IVP Last administered on 05/18/21at 03:08; Start 05/18/21 at 03:30; Stop 05/18/21 at 03:31; Status DC Fentanyl Citrate (Fentanyl 2ml Vial) 75 mcg 1X ONCE IVP Last administered on 05/18/21at 03:07; Start 05/18/21 at 03:30; Stop 05/18/21 at 03:31; Status DC Sodium Chloride 1,000 ml @ 1,000 mls/hr 1X ONCE IV Last administered on 05/18/21at 03:07; Start 05/18/21 at 03:30; Stop 05/18/21 at 04:29; Status DC Multi-Ingredient Mouthwash/Gargle (Gi Cocktail) 20 ml 1X ONCE SWSW Last administered on 05/18/21at 03:09; Start 05/18/21 at 03:30; Stop 05/18/21 at 03:31; Status DC Iohexol (Omnipaque 300 Mg/ml) 75 ml 1X ONCE IV Last administered on 05/18/21at 04:10; Start 05/18/21 at 05:00; Stop 05/18/21 at 05:01; Status DC Info (CONTRAST GIVEN -- Rx MONITORING) 1 each PRN DAILY PRN MC SEE COMMENTS; Start 05/18/21 at 04:15; Stop 05/20/21 at 04:14 Ondansetron HCl (Zofran) 4 mg PRN Q8HRS PRN IVP NAUSEA/VOMITING 1ST CHOICE; Start 05/18/21 at 05:45; Stop 05/18/21 at 10:13; Status DC Morphine Sulfate (Morphine Sulfate) 4 mg PRN Q2HR PRN IVP SEVERE PAIN 7-10; Start 05/18/21 at 05:45; Stop 05/18/21 at 10:13; Status DC Sodium Chloride 1,000 ml @ 100 mls/hr Q10H IV Last administered on 05/18/21at 06:32; Start 05/18/21 at 06:00; Stop 05/19/21 at 05:59 Piperacillin Sod/ Tazobactam Sod 3.375 gm/Sodium Chloride 50 ml @ 100 mls/hr 1X ONCE IV Last administered on 05/18/21at 06:32; Start 05/18/21 at 06:00; Stop 05/18/21 at 06:29; Status DC Pantoprazole Sodium (PROTONIX VIAL for IV PUSH) 40 mg DAILYAC IVP Last administered on 05/18/21at 11:08; Start 05/18/21 at 10:15 Piperacillin Sod/ Tazobactam Sod (Zosyn Per Pharmacy) 1 each PRN DAILY PRN MC SEE COMMENTS; Start 05/18/21 at 10:15 Ondansetron HCl (Zofran) 4 mg PRN Q6HRS PRN IVP NAUSEA/VOMITING, 1st CHOICE; Start 05/18/21 at 10:15 Prochlorperazine Edisylate (Compazine) 10 mg PRN Q6HRS PRN IVP NAUSEA/VOMITING, 2ND CHOICE; Start 05/18/21 at 10:15 Calcium Carbonate/ Glycine (Tums) 500 mg PRN Q3HRS PRN PO UPSET STOMACH; Start 05/18/21 at 10:15 Zolpidem Tartrate (Ambien) 5 mg PRN QHS PRN PO INSOMNIA, MAY REPEAT IN 1HR; Start 05/18/21 at 10:15 Info (Non-Icu Electrolyte Protocol) 1 ea PRN DAILY PRN MC SEE COMMENTS; Start 05/18/21 at 10:15 Morphine Sulfate (Morphine Sulfate) 1 mg PRN Q1HR PRN IV MODERATE PAIN; Start 05/18/21 at 10:15 Morphine Sulfate (Morphine Sulfate) 2 mg PRN Q1HR PRN IV SEVERE PAIN; Start 05/18/21 at 10:15 Acetaminophen (Tylenol) 650 mg PRN Q6HRS PRN PO Headaches, Temp > 101.5F; Start 05/18/21 at 10:15 Senna/Docusate Sodium (Senna Plus) 1 tab BID PO ; Start 05/18/21 at 21:00 Polysaccharide Iron Complex (Niferex 150) 150 mg DAILY PO Last administered on 05/18/21at 11:07; Start 05/18/21 at 11:00 Piperacillin Sod/ Tazobactam Sod 3.375 gm/Sodium Chloride 50 ml @ 100 mls/hr Q6HRS IV Last administered on 05/18/21at 11:07; Start 05/18/21 at 12:00 Potassium Chloride (Klor-Con) 20 meq Q1H PO ; Start 05/18/21 at 14:00; Stop 05/18/21 at 15:01 Active Scripts Active Percocet 5-325 Mg Tablet (Oxycodone/Acetaminophen) 1 Each Tablet 1 Tab PO PRN Q4HRS PRN 3 Days Poly-Iron (Iron Polysaccharides Complex) 150 Mg Capsule 150 Mg PO DAILY 30 Days Reported Iron (Ferrous Gluconate) 236 Mg Tablet 1 Tab PO DAILY 30 Days Allergies Allergies: Coded Allergies: No Known Drug Allergies (Unverified , 05/31/19) ROS Gastrointestinal: Yes Abdominal Pain Physical Exam General: Alert, Oriented X3, Cooperative, No acute distress HEENT: Atraumatic Lungs: Normal air movement Abdomen: Soft, No tenderness Extremities: No clubbing, No cyanosis Skin: No rashes, No breakdown Neuro: Normal speech, Sensation intact Psych/Mental Status: Mental status NL, Mood NL Vitals VITALS Vital Signs Date Time Temp Pulse Resp B/P (MAP) Pulse Ox O2 Delivery O2 Flow Rate FiO2 05/18/21 14:40 98.0 65 20 107/59 (75) 98 Room Air 98.0 Labs Labs Laboratory Tests Test 05/18/21 02:30 05/18/21 02:31 05/18/21 03:00 Urine Collection Type Unknown Urine Color Yellow Urine Clarity Clear Urine pH 7.5 (<5.0-8.0) Urine Specific [place] 1.020 (1.000-1.030) Urine Protein Trace mg/dL (NEG-TRACE) Urine Glucose (UA) Negative mg/dL (NEG) Urine Ketones (Stick) Trace mg/dL (NEG) Urine Blood Negative (NEG) Urine Nitrite Negative (NEG) Urine Bilirubin Negative (NEG) Urine Urobilinogen Dipstick 0.2 mg/dL (0.2 mg/dL) Urine Leukocyte Esterase Negative (NEG) Urine RBC 0 /HPF (0-2) Urine WBC Occ /HPF (0-4) Urine Squamous Epithelial Cells Mod /LPF Urine Bacteria Few /HPF (0-FEW) Urine Mucus Mod /LPF Bedside Urine HCG, Qualitative Hcg negative (Negative) White Blood Count 7.1 x10^3/uL (4.0-11.0) Red Blood Count 3.92 x10^6/uL (3.50-5.40) Hemoglobin 5.6 g/dL (12.0-15.5) Hematocrit 20.5 % (36.0-47.0) Mean Corpuscular Volume 52 fL (79-100) Mean Corpuscular Hemoglobin 14 pg (25-35) Mean Corpuscular Hemoglobin Concent 27 g/dL (31-37) Red Cell Distribution Width 22.6 % (11.5-14.5) Platelet Count 190 x10^3/uL (140-400) Neutrophils (%) (Auto) 81 % (31-73) Lymphocytes (%) (Auto) 14 % (24-48) Monocytes (%) (Auto) 4 % (0-9) Eosinophils (%) (Auto) 0 % (0-3) Basophils (%) (Auto) 1 % (0-3) Neutrophils # (Auto) 5.7 x10^3/uL (1.8-7.7) Lymphocytes # (Auto) 1.0 x10^3/uL (1.0-4.8) Monocytes # (Auto) 0.3 x10^3/uL (0.0-1.1) Eosinophils # (Auto) 0.0 x10^3/uL (0.0-0.7) Basophils # (Auto) 0.0 x10^3/uL (0.0-0.2) Platelet Estimate Adequate (ADEQUATE) Giant Platelets Occ Polychromasia Slight Hypochromasia Marked Basophilic Stippling Present Anisocytosis Mod Microcytosis Marked Tear Drop Cells Occ Ovalocytes Occ Rouleau Present Sodium Level 140 mmol/L (136-145) Potassium Level 3.3 mmol/L (3.5-5.1) Chloride Level 103 mmol/L (98-107) Carbon Dioxide Level 27 mmol/L (21-32) Anion Gap 10 (6-14) Blood Urea Nitrogen 14 mg/dL (7-20) Creatinine 0.8 mg/dL (0.6-1.0) Estimated GFR (Cockcroft-Gault) 77.6 BUN/Creatinine Ratio 18 (6-20) Glucose Level 155 mg/dL (70-99) Lactic Acid Level 1.8 mmol/L (0.4-2.0) Calcium Level 8.5 mg/dL (8.5-10.1) Iron Level 9 ug/dL (50-170) Total Iron Binding Capacity 435 ug/dL (250-450) Iron Saturation 2 % (15-34) Total Bilirubin 0.4 mg/dL (0.2-1.0) Aspartate Amino Transf (AST/SGOT) 40 U/L (15-37) Alanine Aminotransferase (ALT/SGPT) 35 U/L (14-59) Alkaline Phosphatase 85 U/L (46-116) Total Protein 7.1 g/dL (6.4-8.2) Albumin 3.1 g/dL (3.4-5.0) Albumin/Globulin Ratio 0.8 (1.0-1.7) Lipase 200 U/L (73-393) Laboratory Tests Test 05/18/21 02:30 05/18/21 02:31 05/18/21 03:00 Urine Collection Type Unknown Urine Color Yellow Urine Clarity Clear Urine pH 7.5 (<5.0-8.0) Urine Specific [place] 1.020 (1.000-1.030) Urine Protein Trace mg/dL (NEG-TRACE) Urine Glucose (UA) Negative mg/dL (NEG) Urine Ketones (Stick) Trace mg/dL (NEG) Urine Blood Negative (NEG) Urine Nitrite Negative (NEG) Urine Bilirubin Negative (NEG) Urine Urobilinogen Dipstick 0.2 mg/dL (0.2 mg/dL) Urine Leukocyte Esterase Negative (NEG) Urine RBC 0 /HPF (0-2) Urine WBC Occ /HPF (0-4) Urine Squamous Epithelial Cells Mod /LPF Urine Bacteria Few /HPF (0-FEW) Urine Mucus Mod /LPF Bedside Urine HCG, Qualitative Hcg negative (Negative) White Blood Count 7.1 x10^3/uL (4.0-11.0) Red Blood Count 3.92 x10^6/uL (3.50-5.40) Hemoglobin 5.6 g/dL (12.0-15.5) Hematocrit 20.5 % (36.0-47.0) Mean Corpuscular Volume 52 fL (79-100) Mean Corpuscular Hemoglobin 14 pg (25-35) Mean Corpuscular Hemoglobin Concent 27 g/dL (31-37) Red Cell Distribution Width 22.6 % (11.5-14.5) Platelet Count 190 x10^3/uL (140-400) Neutrophils (%) (Auto) 81 % (31-73) Lymphocytes (%) (Auto) 14 % (24-48) Monocytes (%) (Auto) 4 % (0-9) Eosinophils (%) (Auto) 0 % (0-3) Basophils (%) (Auto) 1 % (0-3) Neutrophils # (Auto) 5.7 x10^3/uL (1.8-7.7) Lymphocytes # (Auto) 1.0 x10^3/uL (1.0-4.8) Monocytes # (Auto) 0.3 x10^3/uL (0.0-1.1) Eosinophils # (Auto) 0.0 x10^3/uL (0.0-0.7) Basophils # (Auto) 0.0 x10^3/uL (0.0-0.2) Platelet Estimate Adequate (ADEQUATE) Giant Platelets Occ Polychromasia Slight Hypochromasia Marked Basophilic Stippling Present Anisocytosis Mod Microcytosis Marked Tear Drop Cells Occ Ovalocytes Occ Rouleau Present Sodium Level 140 mmol/L (136-145) Potassium Level 3.3 mmol/L (3.5-5.1) Chloride Level 103 mmol/L (98-107) Carbon Dioxide Level 27 mmol/L (21-32) Anion Gap 10 (6-14) Blood Urea Nitrogen 14 mg/dL (7-20) Creatinine 0.8 mg/dL (0.6-1.0) Estimated GFR (Cockcroft-Gault) 77.6 BUN/Creatinine Ratio 18 (6-20) Glucose Level 155 mg/dL (70-99) Lactic Acid Level 1.8 mmol/L (0.4-2.0) Calcium Level 8.5 mg/dL (8.5-10.1) Iron Level 9 ug/dL (50-170) Total Iron Binding Capacity 435 ug/dL (250-450) Iron Saturation 2 % (15-34) Total Bilirubin 0.4 mg/dL (0.2-1.0) Aspartate Amino Transf (AST/SGOT) 40 U/L (15-37) Alanine Aminotransferase (ALT/SGPT) 35 U/L (14-59) Alkaline Phosphatase 85 U/L (46-116) Total Protein 7.1 g/dL (6.4-8.2) Albumin 3.1 g/dL (3.4-5.0) Albumin/Globulin Ratio 0.8 (1.0-1.7) Lipase 200 U/L (73-393) Images Images CT and US concerning for possible calculous cholecystitis Assessment/Plan Assessment/Plan symptomatic cholelithiasis, now symptomatic improved. pt may benefit from cholecystectomy, but not urgently, as symptoms resolved. Would favor anemia evaluation. Agree with GI evaluation. Would ask hematology and oven laborer to comment. Encourage f/u as output to consider cholecystectomy pending above. Thanks for consult! AVA JACOBSON MD May 18, 2021 15:03
[2021-05-18] MEDS: POTASSIUM CHLORIDE 20 MEQ TABLET.ER. PO SCH ×2 (15:57→15:59)
--- NOTE | 2021-05-18 16:35 | PDOC2 ---
CONSULT Date of Consult Date of Consult DATE: 05/18/21 TIME: 16:34 Reason for Consult Reason for Consult: Anemia History of Present Illness Reason for Visit: 46y who presented to the ER last night with abd pain. The pt underwent a CT revealing the followin. Overall findings may represent early acute calculus cholecystitis. Other differential consideration includes acute hepatitis with reactive changes of the gallbladder. Clinical correlation is advised and may consider nuclear HIDA scan, as warranted. 2. Benign-appearing 4.5 cm right adnexal cyst. Benign, no follow-up required. White paper of the ACR incidental findings, committe II on adnexal findings An u/s was found to reveal: Gallbladder hydrops with asymmetric wall thickening and large cholelithiasis the neck. No significant pericholecystic fluid. Findings equivocal for acute calculus cholecystitis. In the course of her w/u of the abd pain she was found to have a Hgb 5.6. The pt states that she is unsure why her Hgb is this low. The pt states that when she was here last yr she was told the same thing. The pt feels that her periods have been heavy for the last 2 yrs. She typically bleeds for 3wks out of the month. She feels each day is heavy. She has never attempted any tx outside of Fe. 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 Menarche at 13yo SH: no tob, no EtOH FH: noncontributory Past Medical History Cardiovascular: No pertinent hx Pulmonary: No pertinent hx Heme/Onc: Anemia NOS Infectious disease: No pertinent hx Past Surgical History Past Surgical History: No pertinent history Family History Family History: Hypertension Social History ALCOHOL: none Drugs: None Current Problem List Problem List Problems Medical Problems: (1) Anemia affecting 10th Status: Acute Current Medications Current Medications Current Medications Ondansetron HCl (Zofran) 4 mg 1X ONCE IVP Last administered on 05/18/21at 03:08; Start 05/18/21 at 03:30; Stop 05/18/21 at 03:31; Status DC Fentanyl Citrate (Fentanyl 2ml Vial) 75 mcg 1X ONCE IVP Last administered on 05/18/21at 03:07; Start 05/18/21 at 03:30; Stop 05/18/21 at 03:31; Status DC Sodium Chloride 1,000 ml @ 1,000 mls/hr 1X ONCE IV Last administered on 05/18/21at 03:07; Start 05/18/21 at 03:30; Stop 05/18/21 at 04:29; Status DC Multi-Ingredient Mouthwash/Gargle (Gi Cocktail) 20 ml 1X ONCE SWSW Last administered on 05/18/21at 03:09; Start 05/18/21 at 03:30; Stop 05/18/21 at 03:31; Status DC Iohexol (Omnipaque 300 Mg/ml) 75 ml 1X ONCE IV Last administered on 05/18/21at 04:10; Start 05/18/21 at 05:00; Stop 05/18/21 at 05:01; Status DC Info (CONTRAST GIVEN -- Rx MONITORING) 1 each PRN DAILY PRN MC SEE COMMENTS; Start 05/18/21 at 04:15; Stop 05/20/21 at 04:14 Ondansetron HCl (Zofran) 4 mg PRN Q8HRS PRN IVP NAUSEA/VOMITING 1ST CHOICE; Start 05/18/21 at 05:45; Stop 05/18/21 at 10:13; Status DC Morphine Sulfate (Morphine Sulfate) 4 mg PRN Q2HR PRN IVP SEVERE PAIN 7-10; Start 05/18/21 at 05:45; Stop 05/18/21 at 10:13; Status DC Sodium Chloride 1,000 ml @ 100 mls/hr Q10H IV Last administered on 05/18/21at 06:32; Start 05/18/21 at 06:00; Stop 05/19/21 at 05:59 Piperacillin Sod/ Tazobactam Sod 3.375 gm/Sodium Chloride 50 ml @ 100 mls/hr 1X ONCE IV Last administered on 05/18/21at 06:32; Start 05/18/21 at 06:00; Stop 05/18/21 at 06:29; Status DC Pantoprazole Sodium (PROTONIX VIAL for IV PUSH) 40 mg DAILYAC IVP Last administered on 05/18/21at 11:08; Start 05/18/21 at 10:15 Piperacillin Sod/ Tazobactam Sod (Zosyn Per Pharmacy) 1 each PRN DAILY PRN MC SEE COMMENTS; Start 05/18/21 at 10:15 Ondansetron HCl (Zofran) 4 mg PRN Q6HRS PRN IVP NAUSEA/VOMITING, 1st CHOICE; Start 05/18/21 at 10:15 Prochlorperazine Edisylate (Compazine) 10 mg PRN Q6HRS PRN IVP NAUSEA/VOMITING, 2ND CHOICE; Start 05/18/21 at 10:15 Calcium Carbonate/ Glycine (Tums) 500 mg PRN Q3HRS PRN PO UPSET STOMACH; Start 05/18/21 at 10:15 Zolpidem Tartrate (Ambien) 5 mg PRN QHS PRN PO INSOMNIA, MAY REPEAT IN 1HR; Start 05/18/21 at 10:15 Info (Non-Icu Electrolyte Protocol) 1 ea PRN DAILY PRN MC SEE COMMENTS; Start 05/18/21 at 10:15 Morphine Sulfate (Morphine Sulfate) 1 mg PRN Q1HR PRN IV MODERATE PAIN; Start 05/18/21 at 10:15 Morphine Sulfate (Morphine Sulfate) 2 mg PRN Q1HR PRN IV SEVERE PAIN; Start 05/18/21 at 10:15 Acetaminophen (Tylenol) 650 mg PRN Q6HRS PRN PO Headaches, Temp > 101.5F; Start 05/18/21 at 10:15 Senna/Docusate Sodium (Senna Plus) 1 tab BID PO ; Start 05/18/21 at 21:00 Polysaccharide Iron Complex (Niferex 150) 150 mg DAILY PO Last administered on 05/18/21at 11:07; Start 05/18/21 at 11:00 Piperacillin Sod/ Tazobactam Sod 3.375 gm/Sodium Chloride 50 ml @ 100 mls/hr Q6HRS IV Last administered on 05/18/21at 11:07; Start 05/18/21 at 12:00 Potassium Chloride (Klor-Con) 20 meq Q1H PO Last administered on 05/18/21at 15:59; Start 05/18/21 at 14:00; Stop 05/18/21 at 15:01; Status DC Active Scripts Active Percocet 5-325 Mg Tablet (Oxycodone/Acetaminophen) 1 Each Tablet 1 Tab PO PRN Q4HRS PRN 3 Days Poly-Iron (Iron Polysaccharides Complex) 150 Mg Capsule 150 Mg PO DAILY 30 Days Reported Iron (Ferrous Gluconate) 236 Mg Tablet 1 Tab PO DAILY 30 Days Allergies Allergies: Coded Allergies: No Known Drug Allergies (Unverified , 05/31/19) Physical Exam General: Alert, Oriented X3, Cooperative, No acute distress HEENT: PERRLA, Mucous membr. moist/pink Lungs: Clear to auscultation, Normal air movement Heart: Regular rate, Normal S1, Normal S2, No murmurs Extremities: No clubbing, No cyanosis, No edema, Normal pulses, No tenderness/swelling Skin: No rashes, No breakdown Neuro: Normal gait, Normal speech, Normal tone, Sensation intact, Reflexes 2+ Psych/Mental Status: Mental status NL, Mood NL Vitals VITALS Vital Signs Date Time Temp Pulse Resp B/P (MAP) Pulse Ox O2 Delivery O2 Flow Rate FiO2 05/18/21 16:00 98.0 65 20 107/59 98.0 05/18/21 14:40 98 Room Air Labs Labs Laboratory Tests Test 05/18/21 02:30 05/18/21 02:31 05/18/21 03:00 Urine Collection Type Unknown Urine Color Yellow Urine Clarity Clear Urine pH 7.5 (<5.0-8.0) Urine Specific [place] 1.020 (1.000-1.030) Urine Protein Trace mg/dL (NEG-TRACE) Urine Glucose (UA) Negative mg/dL (NEG) Urine Ketones (Stick) Trace mg/dL (NEG) Urine Blood Negative (NEG) Urine Nitrite Negative (NEG) Urine Bilirubin Negative (NEG) Urine Urobilinogen Dipstick 0.2 mg/dL (0.2 mg/dL) Urine Leukocyte Esterase Negative (NEG) Urine RBC 0 /HPF (0-2) Urine WBC Occ /HPF (0-4) Urine Squamous Epithelial Cells Mod /LPF Urine Bacteria Few /HPF (0-FEW) Urine Mucus Mod /LPF Bedside Urine HCG, Qualitative Hcg negative (Negative) White Blood Count 7.1 x10^3/uL (4.0-11.0) Red Blood Count 3.92 x10^6/uL (3.50-5.40) Hemoglobin 5.6 g/dL (12.0-15.5) Hematocrit 20.5 % (36.0-47.0) Mean Corpuscular Volume 52 fL (79-100) Mean Corpuscular Hemoglobin 14 pg (25-35) Mean Corpuscular Hemoglobin Concent 27 g/dL (31-37) Red Cell Distribution Width 22.6 % (11.5-14.5) Platelet Count 190 x10^3/uL (140-400) Neutrophils (%) (Auto) 81 % (31-73) Lymphocytes (%) (Auto) 14 % (24-48) Monocytes (%) (Auto) 4 % (0-9) Eosinophils (%) (Auto) 0 % (0-3) Basophils (%) (Auto) 1 % (0-3) Neutrophils # (Auto) 5.7 x10^3/uL (1.8-7.7) Lymphocytes # (Auto) 1.0 x10^3/uL (1.0-4.8) Monocytes # (Auto) 0.3 x10^3/uL (0.0-1.1) Eosinophils # (Auto) 0.0 x10^3/uL (0.0-0.7) Basophils # (Auto) 0.0 x10^3/uL (0.0-0.2) Platelet Estimate Adequate (ADEQUATE) Giant Platelets Occ Polychromasia Slight Hypochromasia Marked Basophilic Stippling Present Anisocytosis Mod Microcytosis Marked Tear Drop Cells Occ Ovalocytes Occ Rouleau Present Sodium Level 140 mmol/L (136-145) Potassium Level 3.3 mmol/L (3.5-5.1) Chloride Level 103 mmol/L (98-107) Carbon Dioxide Level 27 mmol/L (21-32) Anion Gap 10 (6-14) Blood Urea Nitrogen 14 mg/dL (7-20) Creatinine 0.8 mg/dL (0.6-1.0) Estimated GFR (Cockcroft-Gault) 77.6 BUN/Creatinine Ratio 18 (6-20) Glucose Level 155 mg/dL (70-99) Lactic Acid Level 1.8 mmol/L (0.4-2.0) Calcium Level 8.5 mg/dL (8.5-10.1) Iron Level 9 ug/dL (50-170) Total Iron Binding Capacity 435 ug/dL (250-450) Iron Saturation 2 % (15-34) Total Bilirubin 0.4 mg/dL (0.2-1.0) Aspartate Amino Transf (AST/SGOT) 40 U/L (15-37) Alanine Aminotransferase (ALT/SGPT) 35 U/L (14-59) Alkaline Phosphatase 85 U/L (46-116) Total Protein 7.1 g/dL (6.4-8.2) Albumin 3.1 g/dL (3.4-5.0) Albumin/Globulin Ratio 0.8 (1.0-1.7) Lipase 200 U/L (73-393) Laboratory Tests Test 05/18/21 02:30 05/18/21 02:31 05/18/21 03:00 Urine Collection Type Unknown Urine Color Yellow Urine Clarity Clear Urine pH 7.5 (<5.0-8.0) Urine Specific [place] 1.020 (1.000-1.030) Urine Protein Trace mg/dL (NEG-TRACE) Urine Glucose (UA) Negative mg/dL (NEG) Urine Ketones (Stick) Trace mg/dL (NEG) Urine Blood Negative (NEG) Urine Nitrite Negative (NEG) Urine Bilirubin Negative (NEG) Urine Urobilinogen Dipstick 0.2 mg/dL (0.2 mg/dL) Urine Leukocyte Esterase Negative (NEG) Urine RBC 0 /HPF (0-2) Urine WBC Occ /HPF (0-4) Urine Squamous Epithelial Cells Mod /LPF Urine Bacteria Few /HPF (0-FEW) Urine Mucus Mod /LPF Bedside Urine HCG, Qualitative Hcg negative (Negative) White Blood Count 7.1 x10^3/uL (4.0-11.0) Red Blood Count 3.92 x10^6/uL (3.50-5.40) Hemoglobin 5.6 g/dL (12.0-15.5) Hematocrit 20.5 % (36.0-47.0) Mean Corpuscular Volume 52 fL (79-100) Mean Corpuscular Hemoglobin 14 pg (25-35) Mean Corpuscular Hemoglobin Concent 27 g/dL (31-37) Red Cell Distribution Width 22.6 % (11.5-14.5) Platelet Count 190 x10^3/uL (140-400) Neutrophils (%) (Auto) 81 % (31-73) Lymphocytes (%) (Auto) 14 % (24-48) Monocytes (%) (Auto) 4 % (0-9) Eosinophils (%) (Auto) 0 % (0-3) Basophils (%) (Auto) 1 % (0-3) Neutrophils # (Auto) 5.7 x10^3/uL (1.8-7.7) Lymphocytes # (Auto) 1.0 x10^3/uL (1.0-4.8) Monocytes # (Auto) 0.3 x10^3/uL (0.0-1.1) Eosinophils # (Auto) 0.0 x10^3/uL (0.0-0.7) Basophils # (Auto) 0.0 x10^3/uL (0.0-0.2) Platelet Estimate Adequate (ADEQUATE) Giant Platelets Occ Polychromasia Slight Hypochromasia Marked Basophilic Stippling Present Anisocytosis Mod Microcytosis Marked Tear Drop Cells Occ Ovalocytes Occ Rouleau Present Sodium Level 140 mmol/L (136-145) Potassium Level 3.3 mmol/L (3.5-5.1) Chloride Level 103 mmol/L (98-107) Carbon Dioxide Level 27 mmol/L (21-32) Anion Gap 10 (6-14) Blood Urea Nitrogen 14 mg/dL (7-20) Creatinine 0.8 mg/dL (0.6-1.0) Estimated GFR (Cockcroft-Gault) 77.6 BUN/Creatinine Ratio 18 (6-20) Glucose Level 155 mg/dL (70-99) Lactic Acid Level 1.8 mmol/L (0.4-2.0) Calcium Level 8.5 mg/dL (8.5-10.1) Iron Level 9 ug/dL (50-170) Total Iron Binding Capacity 435 ug/dL (250-450) Iron Saturation 2 % (15-34) Total Bilirubin 0.4 mg/dL (0.2-1.0) Aspartate Amino Transf (AST/SGOT) 40 U/L (15-37) Alanine Aminotransferase (ALT/SGPT) 35 U/L (14-59) Alkaline Phosphatase 85 U/L (46-116) Total Protein 7.1 g/dL (6.4-8.2) Albumin 3.1 g/dL (3.4-5.0) Albumin/Globulin Ratio 0.8 (1.0-1.7) Lipase 200 U/L (73-393) Assessment/Plan Assessment/Plan Assessment: 46y who was admitted for abd pain Recommendations: 1.) Anemia Hgb 5.6 on admission. Receiving 2 U pRBC. Pt unsure the source. Along with [employer], pt also seeing GI. 2.) Menorrhagia Feels that her period have been heavy and longer over the last 2 yrs. Discussed medical and surgical management options. Medical management included hormonal contraception like Provera, Depo, etc. Surgical options would include ablation and hysterectomy. Since the pt is not actively bleeding she does not need to start anything now, but would send her home on a Rx for a 10 day course of Provera. She would also need to f/u in the office in a wk. 3.) Right ovarian cyst simple 4.5 cm. No intervention necessary 4.) Symptomatic cholelithiasis improved since admission, management per Gen Surg 5.) Will cont to follow FRANTZ NYE MD May 18, 2021 16:35
[2021-05-18 20:35] LABS: HEMATOCRIT 26.4 % (36.0-47.0); HEMOGLOBIN 7.8 g/dL (12.0-15.5); RED BLOOD COUNT 4.41 x10^6/uL (3.50-5.40); RED CELL DISTRIBUTION WIDTH 31.1 % (11.5-14.5); WHITE BLOOD COUNT 7.2 x10^3/uL (4.0-11.0)
--- NOTE | 2021-05-18 20:42 | PDOC1 ---
History and Physical Date of Service: DOS: DATE: 05/18/21 TIME: 20:28 Chief Complaint: Chief Complain: abdominal pain History of Present Illness: HPI: Patient is a 46yo female presented overnight for epigastric and RUQ pain. Started a few hours prior to arrival, never had pain like this. 3-4 episodes bilious vomiting. Denies blood in vomit or coffee ground looking. No crazy amount of NSAID use. On arrival to ED patient symptomatically treated. Noted to be anemic with Hgb 5.5 2U PRBC given. Does have hx heavy menses otherwise no apparent bleeding. Thinks she may have had a history of MICHELLE. Imaging in ED showed acute calculous cholecystitis, elevated lipase. She says that her abdominal pain as notably improved, feeling a bit weak and fatigued however. Past Medical/Surgical History: PMH/PSH: MICHELLE Allergies: Allergies: Coded Allergies: No Known Drug Allergies (Unverified , 05/31/19) Family History: Family History: no known per patient Social History: Social History: denies alcohol tobacco drug use Current Medications: Current Medications Current Medications Ondansetron HCl (Zofran) 4 mg 1X ONCE IVP Last administered on 05/18/21at 03:08; Start 05/18/21 at 03:30; Stop 05/18/21 at 03:31; Status DC Fentanyl Citrate (Fentanyl 2ml Vial) 75 mcg 1X ONCE IVP Last administered on 05/18/21at 03:07; Start 05/18/21 at 03:30; Stop 05/18/21 at 03:31; Status DC Sodium Chloride 1,000 ml @ 1,000 mls/hr 1X ONCE IV Last administered on 05/18/21at 03:07; Start 05/18/21 at 03:30; Stop 05/18/21 at 04:29; Status DC Multi-Ingredient Mouthwash/Gargle (Gi Cocktail) 20 ml 1X ONCE SWSW Last administered on 05/18/21at 03:09; Start 05/18/21 at 03:30; Stop 05/18/21 at 03:31; Status DC Iohexol (Omnipaque 300 Mg/ml) 75 ml 1X ONCE IV Last administered on 05/18/21at 04:10; Start 05/18/21 at 05:00; Stop 05/18/21 at 05:01; Status DC Info (CONTRAST GIVEN -- Rx MONITORING) 1 each PRN DAILY PRN MC SEE COMMENTS; Start 05/18/21 at 04:15; Stop 05/20/21 at 04:14 Ondansetron HCl (Zofran) 4 mg PRN Q8HRS PRN IVP NAUSEA/VOMITING 1ST CHOICE; Start 05/18/21 at 05:45; Stop 05/18/21 at 10:13; Status DC Morphine Sulfate (Morphine Sulfate) 4 mg PRN Q2HR PRN IVP SEVERE PAIN 7-10; Start 05/18/21 at 05:45; Stop 05/18/21 at 10:13; Status DC Sodium Chloride 1,000 ml @ 100 mls/hr Q10H IV Last administered on 05/18/21at 06:32; Start 05/18/21 at 06:00; Stop 05/19/21 at 05:59 Piperacillin Sod/ Tazobactam Sod 3.375 gm/Sodium Chloride 50 ml @ 100 mls/hr 1X ONCE IV Last administered on 05/18/21at 06:32; Start 05/18/21 at 06:00; Stop 05/18/21 at 06:29; Status DC Pantoprazole Sodium (PROTONIX VIAL for IV PUSH) 40 mg DAILYAC IVP Last administered on 05/18/21at 11:08; Start 05/18/21 at 10:15 Piperacillin Sod/ Tazobactam Sod (Zosyn Per Pharmacy) 1 each PRN DAILY PRN MC SEE COMMENTS; Start 05/18/21 at 10:15 Ondansetron HCl (Zofran) 4 mg PRN Q6HRS PRN IVP NAUSEA/VOMITING, 1st CHOICE; Start 05/18/21 at 10:15 Prochlorperazine Edisylate (Compazine) 10 mg PRN Q6HRS PRN IVP NAUSEA/VOMITING, 2ND CHOICE; Start 05/18/21 at 10:15 Calcium Carbonate/ Glycine (Tums) 500 mg PRN Q3HRS PRN PO UPSET STOMACH; Start 05/18/21 at 10:15 Zolpidem Tartrate (Ambien) 5 mg PRN QHS PRN PO INSOMNIA, MAY REPEAT IN 1HR; Start 05/18/21 at 10:15 Info (Non-Icu Electrolyte Protocol) 1 ea PRN DAILY PRN MC SEE COMMENTS; Start 05/18/21 at 10:15 Morphine Sulfate (Morphine Sulfate) 1 mg PRN Q1HR PRN IV MODERATE PAIN; Start 05/18/21 at 10:15 Morphine Sulfate (Morphine Sulfate) 2 mg PRN Q1HR PRN IV SEVERE PAIN; Start 05/18/21 at 10:15 Acetaminophen (Tylenol) 650 mg PRN Q6HRS PRN PO Headaches, Temp > 101.5F; Start 05/18/21 at 10:15 Senna/Docusate Sodium (Senna Plus) 1 tab BID PO ; Start 05/18/21 at 21:00 Polysaccharide Iron Complex (Niferex 150) 150 mg DAILY PO Last administered on 05/18/21at 11:07; Start 05/18/21 at 11:00 Piperacillin Sod/ Tazobactam Sod 3.375 gm/Sodium Chloride 50 ml @ 100 mls/hr Q6HRS IV Last administered on 05/18/21at 19:11; Start 05/18/21 at 12:00 Potassium Chloride (Klor-Con) 20 meq Q1H PO Last administered on 05/18/21at 15:5 9; Start 05/18/21 at 14:00; Stop 05/18/21 at 15:01; Status DC Iron Sucrose 400 mg/Sodium Chloride 270 ml @ 90 mls/hr 1X ONCE IV ; Start 05/18/21 at 20:30; Stop 05/18/21 at 23:29; Status UNV Active Scripts Active Percocet 5-325 Mg Tablet (Oxycodone/Acetaminophen) 1 Each Tablet 1 Tab PO PRN Q4HRS PRN 3 Days Poly-Iron (Iron Polysaccharides Complex) 150 Mg Capsule 150 Mg PO DAILY 30 Days Reported Iron (Ferrous Gluconate) 236 Mg Tablet 1 Tab PO DAILY 30 Days ROS: Review of Systems Review of System Unless noted in HPI 14pt ROS negative Physical Exam: Vital Signs: Vital Signs Date Time Temp Pulse Resp B/P (MAP) Pulse Ox O2 Delivery O2 Flow Rate FiO2 05/18/21 19:10 98.3 69 20 122/64 98.3 05/18/21 19:10 98 Room Air Physcial Exam: GEN: No apparent distress. Alert and oriented HEENT: Normal cephalic, atraumatic, external auditory canals are patent EYES: Extraocular muscles are intact, pupil are equally round and reactive to light and accommodation MUSCULOSKELETAL: Well developed , well nourished, good range of motion ENDOCRINE: No thyromegaly was palpated LYMPHATICS: No cervical chain or axillary nodes were noted HEMATOPOIETIC: No bruising NECK: Supple, no JVD, no thyromegaly was noted LUNGS: Clear to auscultation in all lung rasmussen without rhonchi or wheezing HEART: RRR, S!, S2 present. Peripheral pulses intact, no obvious murmurs noted ABDOMEN: Soft, nontender. Positive bowel sounds, no organomegaly, normal bowel sounds EXTREMITIES: Without clubbing, cyanosis, or edema. Pedal pulses intact. Negative Homans sign NEUROLOGIC: Normal speech and tone. A&O x 3, moves all extremities, no obvious focal deficits PSYCHIATRIC: Normal affect, normal mood. Stable SKIN: No ulcerations or rashes, good skin turgor, no jaundice VASCULAR: Good capillary refill, neurovascular bundle appears to be intact Labs: Labs: Laboratory Tests Test 05/18/21 02:30 05/18/21 02:31 05/18/21 03:00 Urine Collection Type Unknown Urine Color Yellow Urine Clarity Clear Urine pH 7.5 (<5.0-8.0) Urine Specific [place] 1.020 (1.000-1.030) Urine Protein Trace mg/dL (NEG-TRACE) Urine Glucose (UA) Negative mg/dL (NEG) Urine Ketones (Stick) Trace mg/dL (NEG) Urine Blood Negative (NEG) Urine Nitrite Negative (NEG) Urine Bilirubin Negative (NEG) Urine Urobilinogen Dipstick 0.2 mg/dL (0.2 mg/dL) Urine Leukocyte Esterase Negative (NEG) Urine RBC 0 /HPF (0-2) Urine WBC Occ /HPF (0-4) Urine Squamous Epithelial Cells Mod /LPF Urine Bacteria Few /HPF (0-FEW) Urine Mucus Mod /LPF Bedside Urine HCG, Qualitative Hcg negative (Negative) White Blood Count 7.1 x10^3/uL (4.0-11.0) Red Blood Count 3.92 x10^6/uL (3.50-5.40) Hemoglobin 5.6 g/dL (12.0-15.5) Hematocrit 20.5 % (36.0-47.0) Mean Corpuscular Volume 52 fL (79-100) Mean Corpuscular Hemoglobin 14 pg (25-35) Mean Corpuscular Hemoglobin Concent 27 g/dL (31-37) Red Cell Distribution Width 22.6 % (11.5-14.5) Platelet Count 190 x10^3/uL (140-400) Neutrophils (%) (Auto) 81 % (31-73) Lymphocytes (%) (Auto) 14 % (24-48) Monocytes (%) (Auto) 4 % (0-9) Eosinophils (%) (Auto) 0 % (0-3) Basophils (%) (Auto) 1 % (0-3) Neutrophils # (Auto) 5.7 x10^3/uL (1.8-7.7) Lymphocytes # (Auto) 1.0 x10^3/uL (1.0-4.8) Monocytes # (Auto) 0.3 x10^3/uL (0.0-1.1) Eosinophils # (Auto) 0.0 x10^3/uL (0.0-0.7) Basophils # (Auto) 0.0 x10^3/uL (0.0-0.2) Platelet Estimate Adequate (ADEQUATE) Giant Platelets Occ Polychromasia Slight Hypochromasia Marked Basophilic Stippling Present Anisocytosis Mod Microcytosis Marked Tear Drop Cells Occ Ovalocytes Occ Rouleau Present Sodium Level 140 mmol/L (136-145) Potassium Level 3.3 mmol/L (3.5-5.1) Chloride Level 103 mmol/L (98-107) Carbon Dioxide Level 27 mmol/L (21-32) Anion Gap 10 (6-14) Blood Urea Nitrogen 14 mg/dL (7-20) Creatinine 0.8 mg/dL (0.6-1.0) Estimated GFR (Cockcroft-Gault) 77.6 BUN/Creatinine Ratio 18 (6-20) Glucose Level 155 mg/dL (70-99) Lactic Acid Level 1.8 mmol/L (0.4-2.0) Calcium Level 8.5 mg/dL (8.5-10.1) Iron Level 9 ug/dL (50-170) Total Iron Binding Capacity 435 ug/dL (250-450) Iron Saturation 2 % (15-34) Total Bilirubin 0.4 mg/dL (0.2-1.0) Aspartate Amino Transf (AST/SGOT) 40 U/L (15-37) Alanine Aminotransferase (ALT/SGPT) 35 U/L (14-59) Alkaline Phosphatase 85 U/L (46-116) Total Protein 7.1 g/dL (6.4-8.2) Albumin 3.1 g/dL (3.4-5.0) Albumin/Globulin Ratio 0.8 (1.0-1.7) Lipase 200 U/L (73-393) Laboratory Tests Test 05/18/21 02:30 05/18/21 02:31 05/18/21 03:00 Urine Collection Type Unknown Urine Color Yellow Urine Clarity Clear Urine pH 7.5 (<5.0-8.0) Urine Specific [place] 1.020 (1.000-1.030) Urine Protein Trace mg/dL (NEG-TRACE) Urine Glucose (UA) Negative mg/dL (NEG) Urine Ketones (Stick) Trace mg/dL (NEG) Urine Blood Negative (NEG) Urine Nitrite Negative (NEG) Urine Bilirubin Negative (NEG) Urine Urobilinogen Dipstick 0.2 mg/dL (0.2 mg/dL) Urine Leukocyte Esterase Negative (NEG) Urine RBC 0 /HPF (0-2) Urine WBC Occ /HPF (0-4) Urine Squamous Epithelial Cells Mod /LPF Urine Bacteria Few /HPF (0-FEW) Urine Mucus Mod /LPF Bedside Urine HCG, Qualitative Hcg negative (Negative) White Blood Count 7.1 x10^3/uL (4.0-11.0) Red Blood Count 3.92 x10^6/uL (3.50-5.40) Hemoglobin 5.6 g/dL (12.0-15.5) Hematocrit 20.5 % (36.0-47.0) Mean Corpuscular Volume 52 fL (79-100) Mean Corpuscular Hemoglobin 14 pg (25-35) Mean Corpuscular Hemoglobin Concent 27 g/dL (31-37) Red Cell Distribution Width 22.6 % (11.5-14.5) Platelet Count 190 x10^3/uL (140-400) Neutrophils (%) (Auto) 81 % (31-73) Lymphocytes (%) (Auto) 14 % (24-48) Monocytes (%) (Auto) 4 % (0-9) Eosinophils (%) (Auto) 0 % (0-3) Basophils (%) (Auto) 1 % (0-3) Neutrophils # (Auto) 5.7 x10^3/uL (1.8-7.7) Lymphocytes # (Auto) 1.0 x10^3/uL (1.0-4.8) Monocytes # (Auto) 0.3 x10^3/uL (0.0-1.1) Eosinophils # (Auto) 0.0 x10^3/uL (0.0-0.7) Basophils # (Auto) 0.0 x10^3/uL (0.0-0.2) Platelet Estimate Adequate (ADEQUATE) Giant Platelets Occ Polychromasia Slight Hypochromasia Marked Basophilic Stippling Present Anisocytosis Mod Microcytosis Marked Tear Drop Cells Occ Ovalocytes Occ Rouleau Present Sodium Level 140 mmol/L (136-145) Potassium Level 3.3 mmol/L (3.5-5.1) Chloride Level 103 mmol/L (98-107) Carbon Dioxide Level 27 mmol/L (21-32) Anion Gap 10 (6-14) Blood Urea Nitrogen 14 mg/dL (7-20) Creatinine 0.8 mg/dL (0.6-1.0) Estimated GFR (Cockcroft-Gault) 77.6 BUN/Creatinine Ratio 18 (6-20) Glucose Level 155 mg/dL (70-99) Lactic Acid Level 1.8 mmol/L (0.4-2.0) Calcium Level 8.5 mg/dL (8.5-10.1) Iron Level 9 ug/dL (50-170) Total Iron Binding Capacity 435 ug/dL (250-450) Iron Saturation 2 % (15-34) Total Bilirubin 0.4 mg/dL (0.2-1.0) Aspartate Amino Transf (AST/SGOT) 40 U/L (15-37) Alanine Aminotransferase (ALT/SGPT) 35 U/L (14-59) Alkaline Phosphatase 85 U/L (46-116) Total Protein 7.1 g/dL (6.4-8.2) Albumin 3.1 g/dL (3.4-5.0) Albumin/Globulin Ratio 0.8 (1.0-1.7) Lipase 200 U/L (73-393) Assessment/Plan Assessment/Plan Symptomatic but improved cholecystitis, Microcytic Anemia, Menorrhagia -presented sudden onset RUQ abdominal pain; imaging with calculous cholecystitis but symptomatically improved -surgery consulted; improved symptoms, possible nonurgent cholecystectomy -quite interesting CBC; hx heavy menses and suspect anemia primarily 2/2 to this; basophilic stippling on labs, guessing related to MICHELLE but will check Lead level and peripheral smear for completeness -Oral iron, one time IV iron -likely noninfectious cause of cholecystitis but given iron supplementation will keep on antibiotics -[employer], GI, hematology consulted -hold off DVT prophylaxis -ADAT -home meds as indicated Justifications for Admission Other Justification ESTHELA COOPER MD May 18, 2021 20:42
[2021-05-18] MEDS ORDERED: IRON SUCROSE COMPLEX 400 MG in IV NORMAL SALINE 250ML 250 ML IV ONE (21:00)
[2021-05-18] MEDS: SENNOSIDES/DOCUSATE 8.6/50MG TABLET. PO SCH (21:05)
[2021-05-19] MEDS: IV NORMAL SALINE 1000ML BAG 1,000 ML IV SCH ×2 (03:20→03:37)
[2021-05-19 03:58] VITALS: BP 125/64
[2021-05-19] MEDS: PIPERACILLIN/TAZOBACTAM 3.375 GM in IV NORMAL SALINE 50ML 50 ML IV SCH ×4 (05:52→17:58)
[2021-05-19 07:00] VITALS: BP 117/58
[2021-05-19 08:27] LABS: BASO % 1 % (0-3); EOS % 0 % (0-3); HEMATOCRIT 27.1 % (36.0-47.0); HEMOGLOBIN 7.8 g/dL (12.0-15.5); LYMPH # 1.5 x10^3/uL (1.0-4.8); LYMPH % 20 % (24-48); MEAN CORPUSCULAR HEMOGLOBIN 18 pg (25-35); MEAN CORPUSCULAR HGB CONC 29 g/dL (31-37); MEAN CORPUSCULAR VOLUME 61 fL (79-100); MONO # 0.5 x10^3/uL (0.0-1.1); MONO % 7 % (0-9); NEUT # 5.4 x10^3/uL (1.8-7.7); NEUT % 72 % (31-73); PLATELET COUNT 181 x10^3/uL (140-400); RED BLOOD COUNT 4.47 x10^6/uL (3.50-5.40); RED CELL DISTRIBUTION WIDTH 30.2 % (11.5-14.5); WHITE BLOOD COUNT 7.4 x10^3/uL (4.0-11.0)
[2021-05-19 08:35] LABS: ALBUMIN 2.9 g/dL (3.4-5.0); ALBUMIN/GLOBULIN RATIO 0.8 (1.0-1.7); CALCIUM 8.1 mg/dL (8.5-10.1); CREATININE 0.7 mg/dL (0.6-1.0); GFR 90.5; POTASSIUM 3.8 mmol/L (3.5-5.1); TOTAL BILIRUBIN 0.4 mg/dL (0.2-1.0); TOTAL PROTEIN 6.6 g/dL (6.4-8.2)
[2021-05-19] MEDS: PANTOPRAZOLE IV PUSH 40 MG VIAL. IVP SCH (09:09)
[2021-05-19] MEDS: IRON POLYSACCHARIDE COMPLEX 150 MG CAPSULE PO SCH (09:09)
[2021-05-19] MEDS: SENNOSIDES/DOCUSATE 8.6/50MG TABLET. PO SCH ×2 (09:09→21:00)
[2021-05-19 09:52] LABS: INFLUENZA A PATIENT NEGATIVE (NEGATIVE); INFLUENZA B PATIENT NEGATIVE (NEGATIVE)
[2021-05-19 11:00] VITALS: BP 107/60
--- NOTE | 2021-05-19 13:54 | PDOC ---
GI PROGRESS NOTES Date of Service: Date/Time DATE: 05/19/21 TIME: 13:52 Subjective Subjective Tolerating liquid diet. Feeling better without significant pain. Objective Vitals Vital Signs Date Time Temp Pulse Resp B/P (MAP) Pulse Ox O2 Delivery O2 Flow Rate FiO2 05/19/21 11:00 98.4 57 22 107/60 (76) 98 Room Air 98.4 05/19/21 08:00 Room Air 05/19/21 07:00 98.4 55 20 117/58 (77) 95 Room Air 98.4 05/19/21 03:58 98.0 62 20 125/64 (84) 99 Room Air 98.0 05/18/21 23:00 98.2 63 18 116/56 (76) 97 Room Air 98.2 05/18/21 19:10 98.3 69 20 122/64 98.3 05/18/21 19:10 98.3 69 20 122/64 (83) 98 Room Air 98.3 05/18/21 18:27 98.3 69 112/65 98.3 05/18/21 17:11 98.1 66 20 104/51 98.1 05/18/21 17:10 98.1 66 20 104/51 98.1 05/18/21 16:00 98.0 65 20 107/59 98.0 05/18/21 14:40 98.0 65 20 107/59 (75) 98 Room Air 98.0 05/18/21 14:30 66 18 107/59 Labs Labs Laboratory Tests Test 05/18/21 20:24 05/19/21 07:50 05/19/21 09:29 White Blood Count 7.2 x10^3/uL (4.0-11.0) 7.4 x10^3/uL (4.0-11.0) Red Blood Count 4.41 x10^6/uL (3.50-5.40) 4.47 x10^6/uL (3.50-5.40) Hemoglobin 7.8 g/dL (12.0-15.5) 7.8 g/dL (12.0-15.5) Hematocrit 26.4 % (36.0-47.0) 27.1 % (36.0-47.0) Mean Corpuscular Volume 60 fL (79-100) 61 fL (79-100) Mean Corpuscular Hemoglobin 18 pg (25-35) 18 pg (25-35) Mean Corpuscular Hemoglobin Concent 30 g/dL (31-37) 29 g/dL (31-37) Red Cell Distribution Width 31.1 % (11.5-14.5) 30.2 % (11.5-14.5) Platelet Count 176 x10^3/uL (140-400) 181 x10^3/uL (140-400) Neutrophils (%) (Auto) 72 % (31-73) Lymphocytes (%) (Auto) 20 % (24-48) Monocytes (%) (Auto) 7 % (0-9) Eosinophils (%) (Auto) 0 % (0-3) Basophils (%) (Auto) 1 % (0-3) Neutrophils # (Auto) 5.4 x10^3/uL (1.8-7.7) Lymphocytes # (Auto) 1.5 x10^3/uL (1.0-4.8) Monocytes # (Auto) 0.5 x10^3/uL (0.0-1.1) Eosinophils # (Auto) 0.0 x10^3/uL (0.0-0.7) Basophils # (Auto) 0.0 x10^3/uL (0.0-0.2) Sodium Level 140 mmol/L (136-145) Potassium Level 3.8 mmol/L (3.5-5.1) Chloride Level 106 mmol/L (98-107) Carbon Dioxide Level 24 mmol/L (21-32) Anion Gap 10 (6-14) Blood Urea Nitrogen 9 mg/dL (7-20) Creatinine 0.7 mg/dL (0.6-1.0) Estimated GFR (Cockcroft-Gault) 90.5 BUN/Creatinine Ratio 13 (6-20) Glucose Level 90 mg/dL (70-99) Calcium Level 8.1 mg/dL (8.5-10.1) Total Bilirubin 0.4 mg/dL (0.2-1.0) Aspartate Amino Transf (AST/SGOT) 88 U/L (15-37) Alanine Aminotransferase (ALT/SGPT) 132 U/L (14-59) Alkaline Phosphatase 105 U/L (46-116) Total Protein 6.6 g/dL (6.4-8.2) Albumin 2.9 g/dL (3.4-5.0) Albumin/Globulin Ratio 0.8 (1.0-1.7) Influenza Type A Antigen Negative (NEGATIVE) Influenza Type B Antigen Negative (NEGATIVE) SARS-CoV-2 Antigen (Rapid) Negative (NEGATIVE) Physical Exam Physical Exam Awake and alert Chest clear Abdomen soft, nontender, normal bowel sounds Assessment Assessment Acute dyspepsia probably related to cholelithiasis but clinically improved. There was a slight bump in her transaminases overnight. We will need to monitor this to see if this represents passage of a common duct stone or not. Chronic severe iron deficiency anemia. Likely related to excessive menorrhagia however other sources have not been excluded. Plan Plan Continue present treatment program May advance to a full liquid diet as tolerated EGD and colonoscopy as an outpatient to evaluate her symptoms and her chronic anemia Justicifation of Admission Dx: Justifications for Admission: Justification of Admission Dx: Yes SHAWN VEGA MD May 19, 2021 13:54
--- NOTE | 2021-05-19 14:31 | PDOC ---
SURGICAL PROGRESS NOTE DATE: 05/19/21 TIME: 14:29 Subjective Pt without c/o, abd pain resolved, jannet clears Vital Signs Vital Signs Date Time Temp Pulse Resp B/P (MAP) Pulse Ox O2 Delivery O2 Flow Rate FiO2 05/19/21 11:00 98.4 57 22 107/60 (76) 98 Room Air 98.4 I&O Intake and Output 05/19/21 07:00 Intake Total 1425 ml Output Total 0 ml Balance 1425 ml Intake Oral 700 ml Blood Product IV Normal Saline Flush 725 ml Output Urine Total 0 ml # Voids 3 General: Alert, Oriented X3, Cooperative, No acute distress Abdomen: Soft, No tenderness Labs Laboratory Tests Test 05/18/21 02:30 05/18/21 02:31 05/18/21 03:00 05/18/21 20:24 Urine Collection Type Unknown Urine Color Yellow Urine Clarity Clear Urine pH 7.5 (<5.0-8.0) Urine Specific [place] 1.020 (1.000-1.030) Urine Protein Trace mg/dL (NEG-TRACE) Urine Glucose (UA) Negative mg/dL (NEG) Urine Ketones (Stick) Trace mg/dL (NEG) Urine Blood Negative (NEG) Urine Nitrite Negative (NEG) Urine Bilirubin Negative (NEG) Urine Urobilinogen Dipstick 0.2 mg/dL (0.2 mg/dL) Urine Leukocyte Esterase Negative (NEG) Urine RBC 0 /HPF (0-2) Urine WBC Occ /HPF (0-4) Urine Squamous Epithelial Cells Mod /LPF Urine Bacteria Few /HPF (0-FEW) Urine Mucus Mod /LPF Bedside Urine HCG, Qualitative Hcg negative (Negative) White Blood Count 7.1 x10^3/uL (4.0-11.0) 7.2 x10^3/uL (4.0-11.0) Red Blood Count 3.92 x10^6/uL (3.50-5.40) 4.41 x10^6/uL (3.50-5.40) Hemoglobin 5.6 g/dL (12.0-15.5) 7.8 g/dL (12.0-15.5) Hematocrit 20.5 % (36.0-47.0) 26.4 % (36.0-47.0) Mean Corpuscular Volume 52 fL (79-100) 60 fL (79-100) Mean Corpuscular Hemoglobin 14 pg (25-35) 18 pg (25-35) Mean Corpuscular Hemoglobin Concent 27 g/dL (31-37) 30 g/dL (31-37) Red Cell Distribution Width 22.6 % (11.5-14.5) 31.1 % (11.5-14.5) Platelet Count 190 x10^3/uL (140-400) 176 x10^3/uL (140-400) Neutrophils (%) (Auto) 81 % (31-73) Lymphocytes (%) (Auto) 14 % (24-48) Monocytes (%) (Auto) 4 % (0-9) Eosinophils (%) (Auto) 0 % (0-3) Basophils (%) (Auto) 1 % (0-3) Neutrophils # (Auto) 5.7 x10^3/uL (1.8-7.7) Lymphocytes # (Auto) 1.0 x10^3/uL (1.0-4.8) Monocytes # (Auto) 0.3 x10^3/uL (0.0-1.1) Eosinophils # (Auto) 0.0 x10^3/uL (0.0-0.7) Basophils # (Auto) 0.0 x10^3/uL (0.0-0.2) Platelet Estimate Adequate (ADEQUATE) Giant Platelets Occ Polychromasia Slight Hypochromasia Marked Basophilic Stippling Present Anisocytosis Mod Microcytosis Marked Tear Drop Cells Occ Ovalocytes Occ Rouleau Present Sodium Level 140 mmol/L (136-145) Potassium Level 3.3 mmol/L (3.5-5.1) Chloride Level 103 mmol/L (98-107) Carbon Dioxide Level 27 mmol/L (21-32) Anion Gap 10 (6-14) Blood Urea Nitrogen 14 mg/dL (7-20) Creatinine 0.8 mg/dL (0.6-1.0) Estimated GFR (Cockcroft-Gault) 77.6 BUN/Creatinine Ratio 18 (6-20) Glucose Level 155 mg/dL (70-99) Lactic Acid Level 1.8 mmol/L (0.4-2.0) Calcium Level 8.5 mg/dL (8.5-10.1) Iron Level 9 ug/dL (50-170) Total Iron Binding Capacity 435 ug/dL (250-450) Iron Saturation 2 % (15-34) Total Bilirubin 0.4 mg/dL (0.2-1.0) Aspartate Amino Transf (AST/SGOT) 40 U/L (15-37) Alanine Aminotransferase (ALT/SGPT) 35 U/L (14-59) Alkaline Phosphatase 85 U/L (46-116) Total Protein 7.1 g/dL (6.4-8.2) Albumin 3.1 g/dL (3.4-5.0) Albumin/Globulin Ratio 0.8 (1.0-1.7) Lipase 200 U/L (73-393) Test 05/19/21 07:50 05/19/21 09:29 White Blood Count 7.4 x10^3/uL (4.0-11.0) Red Blood Count 4.47 x10^6/uL (3.50-5.40) Hemoglobin 7.8 g/dL (12.0-15.5) Hematocrit 27.1 % (36.0-47.0) Mean Corpuscular Volume 61 fL (79-100) Mean Corpuscular Hemoglobin 18 pg (25-35) Mean Corpuscular Hemoglobin Concent 29 g/dL (31-37) Red Cell Distribution Width 30.2 % (11.5-14.5) Platelet Count 181 x10^3/uL (140-400) Neutrophils (%) (Auto) 72 % (31-73) Lymphocytes (%) (Auto) 20 % (24-48) Monocytes (%) (Auto) 7 % (0-9) Eosinophils (%) (Auto) 0 % (0-3) Basophils (%) (Auto) 1 % (0-3) Neutrophils # (Auto) 5.4 x10^3/uL (1.8-7.7) Lymphocytes # (Auto) 1.5 x10^3/uL (1.0-4.8) Monocytes # (Auto) 0.5 x10^3/uL (0.0-1.1) Eosinophils # (Auto) 0.0 x10^3/uL (0.0-0.7) Basophils # (Auto) 0.0 x10^3/uL (0.0-0.2) Sodium Level 140 mmol/L (136-145) Potassium Level 3.8 mmol/L (3.5-5.1) Chloride Level 106 mmol/L (98-107) Carbon Dioxide Level 24 mmol/L (21-32) Anion Gap 10 (6-14) Blood Urea Nitrogen 9 mg/dL (7-20) Creatinine 0.7 mg/dL (0.6-1.0) Estimated GFR (Cockcroft-Gault) 90.5 BUN/Creatinine Ratio 13 (6-20) Glucose Level 90 mg/dL (70-99) Calcium Level 8.1 mg/dL (8.5-10.1) Total Bilirubin 0.4 mg/dL (0.2-1.0) Aspartate Amino Transf (AST/SGOT) 88 U/L (15-37) Alanine Aminotransferase (ALT/SGPT) 132 U/L (14-59) Alkaline Phosphatase 105 U/L (46-116) Total Protein 6.6 g/dL (6.4-8.2) Albumin 2.9 g/dL (3.4-5.0) Albumin/Globulin Ratio 0.8 (1.0-1.7) Influenza Type A Antigen Negative (NEGATIVE) Influenza Type B Antigen Negative (NEGATIVE) SARS-CoV-2 Antigen (Rapid) Negative (NEGATIVE) Laboratory Tests Test 05/18/21 20:24 05/19/21 07:50 05/19/21 09:29 White Blood Count 7.2 x10^3/uL (4.0-11.0) 7.4 x10^3/uL (4.0-11.0) Red Blood Count 4.41 x10^6/uL (3.50-5.40) 4.47 x10^6/uL (3.50-5.40) Hemoglobin 7.8 g/dL (12.0-15.5) 7.8 g/dL (12.0-15.5) Hematocrit 26.4 % (36.0-47.0) 27.1 % (36.0-47.0) Mean Corpuscular Volume 60 fL (79-100) 61 fL (79-100) Mean Corpuscular Hemoglobin 18 pg (25-35) 18 pg (25-35) Mean Corpuscular Hemoglobin Concent 30 g/dL (31-37) 29 g/dL (31-37) Red Cell Distribution Width 31.1 % (11.5-14.5) 30.2 % (11.5-14.5) Platelet Count 176 x10^3/uL (140-400) 181 x10^3/uL (140-400) Neutrophils (%) (Auto) 72 % (31-73) Lymphocytes (%) (Auto) 20 % (24-48) Monocytes (%) (Auto) 7 % (0-9) Eosinophils (%) (Auto) 0 % (0-3) Basophils (%) (Auto) 1 % (0-3) Neutrophils # (Auto) 5.4 x10^3/uL (1.8-7.7) Lymphocytes # (Auto) 1.5 x10^3/uL (1.0-4.8) Monocytes # (Auto) 0.5 x10^3/uL (0.0-1.1) Eosinophils # (Auto) 0.0 x10^3/uL (0.0-0.7) Basophils # (Auto) 0.0 x10^3/uL (0.0-0.2) Sodium Level 140 mmol/L (136-145) Potassium Level 3.8 mmol/L (3.5-5.1) Chloride Level 106 mmol/L (98-107) Carbon Dioxide Level 24 mmol/L (21-32) Anion Gap 10 (6-14) Blood Urea Nitrogen 9 mg/dL (7-20) Creatinine 0.7 mg/dL (0.6-1.0) Estimated GFR (Cockcroft-Gault) 90.5 BUN/Creatinine Ratio 13 (6-20) Glucose Level 90 mg/dL (70-99) Calcium Level 8.1 mg/dL (8.5-10.1) Total Bilirubin 0.4 mg/dL (0.2-1.0) Aspartate Amino Transf (AST/SGOT) 88 U/L (15-37) Alanine Aminotransferase (ALT/SGPT) 132 U/L (14-59) Alkaline Phosphatase 105 U/L (46-116) Total Protein 6.6 g/dL (6.4-8.2) Albumin 2.9 g/dL (3.4-5.0) Albumin/Globulin Ratio 0.8 (1.0-1.7) Influenza Type A Antigen Negative (NEGATIVE) Influenza Type B Antigen Negative (NEGATIVE) SARS-CoV-2 Antigen (Rapid) Negative (NEGATIVE) Problem List Problems Medical Problems: (1) Acute cholecystitis Status: Acute (2) Anemia affecting 10th Status: Acute Assessment/Plan symptomatic cholelithiasis pt doing well. Will ADAT. Ok to d/c home. 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 F/u with gen surg to consider cholecystectomy pending above. Justicifation of Admission Dx: Justifications for Admission: Justification of Admission Dx: Yes AVA JACOBSON MD May 19, 2021 14:31
[2021-05-19 15:00] VITALS: BP 115/52
--- NOTE | 2021-05-19 18:17 | PDOC ---
S[employer] PROGRESS NOTE Date of Service: DATE: 05/19/21 TIME: 18:16 Subjective: Pt feels good. Still without bleeding Objective: Vital Signs: Vital Signs Date Time Temp Pulse Resp B/P (MAP) Pulse Ox O2 Delivery O2 Flow Rate FiO2 05/18/21 08:00 Room Air 05/18/21 11:01 97.7 61 20 102/51 (68) 97 97.7 Vital Signs Date Time Temp Pulse Resp B/P (MAP) Pulse Ox O2 Delivery O2 Flow Rate FiO2 05/19/21 15:00 98.3 69 20 115/52 (73) 94 Room Air 98.3 Labs: Laboratory Tests Test 05/18/21 20:24 05/19/21 07:50 05/19/21 09:29 White Blood Count 7.2 x10^3/uL (4.0-11.0) 7.4 x10^3/uL (4.0-11.0) Red Blood Count 4.41 x10^6/uL (3.50-5.40) 4.47 x10^6/uL (3.50-5.40) Hemoglobin 7.8 g/dL (12.0-15.5) #L 7.8 g/dL (12.0-15.5) L Hematocrit 26.4 % (36.0-47.0) L 27.1 % (36.0-47.0) L Mean Corpuscular Volume 60 fL (79-100) #L 61 fL (79-100) L Mean Corpuscular Hemoglobin 18 pg (25-35) L 18 pg (25-35) L Mean Corpuscular Hemoglobin Concent 30 g/dL (31-37) L 29 g/dL (31-37) L Red Cell Distribution Width 31.1 % (11.5-14.5) H 30.2 % (11.5-14.5) H Platelet Count 176 x10^3/uL (140-400) 181 x10^3/uL (140-400) Neutrophils (%) (Auto) 72 % (31-73) Lymphocytes (%) (Auto) 20 % (24-48) L Monocytes (%) (Auto) 7 % (0-9) Eosinophils (%) (Auto) 0 % (0-3) Basophils (%) (Auto) 1 % (0-3) Neutrophils # (Auto) 5.4 x10^3/uL (1.8-7.7) Lymphocytes # (Auto) 1.5 x10^3/uL (1.0-4.8) Monocytes # (Auto) 0.5 x10^3/uL (0.0-1.1) Eosinophils # (Auto) 0.0 x10^3/uL (0.0-0.7) Basophils # (Auto) 0.0 x10^3/uL (0.0-0.2) Sodium Level 140 mmol/L (136-145) Potassium Level 3.8 mmol/L (3.5-5.1) Chloride Level 106 mmol/L (98-107) Carbon Dioxide Level 24 mmol/L (21-32) Anion Gap 10 (6-14) Blood Urea Nitrogen 9 mg/dL (7-20) Creatinine 0.7 mg/dL (0.6-1.0) Estimated GFR (Cockcroft-Gault) 90.5 BUN/Creatinine Ratio 13 (6-20) Glucose Level 90 mg/dL (70-99) Calcium Level 8.1 mg/dL (8.5-10.1) L Total Bilirubin 0.4 mg/dL (0.2-1.0) Aspartate Amino Transferase (AST) 88 U/L (15-37) H Alanine Aminotransferase (ALT) 132 U/L (14-59) H Alkaline Phosphatase 105 U/L (46-116) Total Protein 6.6 g/dL (6.4-8.2) Albumin 2.9 g/dL (3.4-5.0) L Albumin/Globulin Ratio 0.8 (1.0-1.7) L Influenza Type A Antigen Negative (NEGATIVE) Influenza Type B Antigen Negative (NEGATIVE) SARS-CoV-2 Antigen (Rapid) Negative (NEGATIVE) Laboratory Tests 05/18/21 20:24 05/19/21 07:50 Laboratory Tests 05/19/21 07:50 Laboratory Tests 05/19/21 07:50 Physical Exam: GENERAL: No apparent distress. Alert and oriented. HEENT: Head normocephalic, atraumatic. NECK: Supple LUNGS: Clear to auscultation. HEART: RRR, S1, S2 present, pulses intact ABDOMEN: Soft, positive bowel sounds. EXTREMITIES: No cyanosis or edema. NEUROLOGIC: Normal speech, normal tone PSYCHIATRIC: Normal affect, normal mood. SKIN: No ulceration. Assessment & Plan: A/P 46y who was admitted for abd pain 1.) Anemia Hgb 5.6 -> 2U pRBC -> 7.8. Pt unsure the source. Along with Stonecutter Apprentice Hand, pt also seeing GI. May perform outpt eval. 2.) Menorrhagia Since the pt is not actively bleeding she does not need to start anything now, but would send her home on a Rx for a 10 day course of Provera. She would also need to f/u in the office in a wk. 3.) Right ovarian cyst simple 4.5 cm. No intervention necessary. 4.) Symptomatic cholelithiasis improved since admission, on Zosyn, management per Gen Surg. 5.) Will cont to follow FRANTZ NYE MD May 19, 2021 18:17
--- NOTE | 2021-05-19 18:30 | PDOC ---
[employer] PROGRESS NOTE Date of Service DOS: DATE: 05/19/21 TIME: 18:29 Chief Complaint Chief Complaint Symptomatic but improved cholecystitis, Microcytic Anemia, Menorrhagia -presented sudden onset RUQ abdominal pain; imaging with calculous cholecystitis but symptomatically improved -surgery consulted; improved symptoms, possible nonurgent cholecystectomy -quite interesting CBC; hx heavy menses and suspect anemia primarily 2/2 to this; basophilic stippling on labs, guessing related to MICHELLE but will check Lead level and peripheral smear for completeness -Oral iron, one time IV iron -likely noninfectious cause of cholecystitis but given iron supplementation will keep on antibiotics -Medical Diagnostic Radiographer, GI, hematology consulted -hold off DVT prophylaxis -ADAT -home meds as indicated History of Present Illness History of Present Illness 05/19 Evaluate examined at bedside. Hemoglobin stable but LFTs up little bit today. Doing okay with diet pain notably improved. Monitor hemoglobin and LFTs. Recheck in the morning if stable can likely DC home. Vitals/I&O Vitals/I&O: Vital Signs Date Time Temp Pulse Resp B/P (MAP) Pulse Ox O2 Delivery O2 Flow Rate FiO2 05/19/21 15:00 98.3 69 20 115/52 (73) 94 Room Air 98.3 I & O 0 05/18/21 05/18/21 05/19/21 15:00 23:00 07:00 Intake Total 425 ml 600 ml 400 ml Output Total 0 ml Balance 425 ml 600 ml 400 ml Physical Exam General: Alert, Oriented X3, Cooperative, No acute distress Heart: Regular rate, Normal S1, Normal S2, No murmurs Lungs: Clear Abdomen: Soft, No tenderness Extremities: No clubbing, No cyanosis, No edema, Normal pulses, No te nderness/swelling Skin: No rashes, No breakdown Labs Labs: Laboratory Tests Test 05/18/21 20:24 05/19/21 07:50 05/19/21 09:29 White Blood Count 7.2 x10^3/uL (4.0-11.0) 7.4 x10^3/uL (4.0-11.0) Red Blood Count 4.41 x10^6/uL (3.50-5.40) 4.47 x10^6/uL (3.50-5.40) Hemoglobin 7.8 g/dL (12.0-15.5) 7.8 g/dL (12.0-15.5) Hematocrit 26.4 % (36.0-47.0) 27.1 % (36.0-47.0) Mean Corpuscular Volume 60 fL (79-100) 61 fL (79-100) Mean Corpuscular Hemoglobin 18 pg (25-35) 18 pg (25-35) Mean Corpuscular Hemoglobin Concent 30 g/dL (31-37) 29 g/dL (31-37) Red Cell Distribution Width 31.1 % (11.5-14.5) 30.2 % (11.5-14.5) Platelet Count 176 x10^3/uL (140-400) 181 x10^3/uL (140-400) Neutrophils (%) (Auto) 72 % (31-73) Lymphocytes (%) (Auto) 20 % (24-48) Monocytes (%) (Auto) 7 % (0-9) Eosinophils (%) (Auto) 0 % (0-3) Basophils (%) (Auto) 1 % (0-3) Neutrophils # (Auto) 5.4 x10^3/uL (1.8-7.7) Lymphocytes # (Auto) 1.5 x10^3/uL (1.0-4.8) Monocytes # (Auto) 0.5 x10^3/uL (0.0-1.1) Eosinophils # (Auto) 0.0 x10^3/uL (0.0-0.7) Basophils # (Auto) 0.0 x10^3/uL (0.0-0.2) Sodium Level 140 mmol/L (136-145) Potassium Level 3.8 mmol/L (3.5-5.1) Chloride Level 106 mmol/L (98-107) Carbon Dioxide Level 24 mmol/L (21-32) Anion Gap 10 (6-14) Blood Urea Nitrogen 9 mg/dL (7-20) Creatinine 0.7 mg/dL (0.6-1.0) Estimated GFR (Cockcroft-Gault) 90.5 BUN/Creatinine Ratio 13 (6-20) Glucose Level 90 mg/dL (70-99) Calcium Level 8.1 mg/dL (8.5-10.1) Total Bilirubin 0.4 mg/dL (0.2-1.0) Aspartate Amino Transf (AST/SGOT) 88 U/L (15-37) Alanine Aminotransferase (ALT/SGPT) 132 U/L (14-59) Alkaline Phosphatase 105 U/L (46-116) Total Protein 6.6 g/dL (6.4-8.2) Albumin 2.9 g/dL (3.4-5.0) Albumin/Globulin Ratio 0.8 (1.0-1.7) Influenza Type A Antigen Negative (NEGATIVE) Influenza Type B Antigen Negative (NEGATIVE) SARS-CoV-2 Antigen (Rapid) Negative (NEGATIVE) Assessment and Plan Assessmemt and Plan Problems Medical Problems: (1) Acute cholecystitis Status: Acute (2) Anemia affecting 10th Status: Acute Comment Review of Relevant I have reviewed the following items liam (where applicable) has been applied. Medications: Current Medications Medications (Trade) Dose Ordered Sig/Brock Route PRN Reason Start Time Stop Time Status Last Admin Dose Admin Senna/Docusate Sodium (Senna Plus) 1 tab BID PO 05/18/21 21:00 05/19/21 09:09 Iron Sucrose 400 mg/Sodium Chloride 270 ml @ 90 mls/hr 1X ONCE IV 05/18/21 21:00 05/18/21 23:59 DC 05/18/21 21:05 Justifications for Admission Other Justification ESTHELA COOPER MD May 19, 2021 18:30
[2021-05-19 19:00] VITALS: BP 107/48
[2021-05-19] MEDS ORDERED: LACTOBACILLUS RHAMNOSUS GG 1 CAPSULE. PO SCH (21:00)
[2021-05-19 23:00] VITALS: BP 113/58
[2021-05-20 03:00] VITALS: BP 100/62
[2021-05-20 07:00] VITALS: BP 123/67
[2021-05-20] MEDS: SENNOSIDES/DOCUSATE 8.6/50MG TABLET. PO SCH (08:12)
[2021-05-20] MEDS: PANTOPRAZOLE IV PUSH 40 MG VIAL. IVP SCH (08:12)
[2021-05-20] MEDS: IRON POLYSACCHARIDE COMPLEX 150 MG CAPSULE PO SCH (08:12)
--- NOTE | 2021-05-20 08:56 | PDOC ---
SAHIL QUINTERO RECREATION ADVISER 05/20/21 0856: SURGICAL PROGRESS NOTE DATE: 05/20/21 TIME: 08:49 Subjective no significant abdominal pain this AM, has not had breakfast yet no emesis Vital Signs Vital Signs Date Time Temp Pulse Resp B/P (MAP) Pulse Ox O2 Delivery O2 Flow Rate FiO2 05/20/21 07:00 97.9 60 18 123/67 (85) 96 Room Air 97.9 I&O Intake and Output 05/20/21 07:00 Intake Total 990 ml Balance 990 ml Intake Oral 990 ml # Voids 4 General: Alert, Oriented X3, Cooperative Abdomen: Soft, No tenderness Labs Laboratory Tests Test 05/18/21 20:24 05/19/21 07:50 05/19/21 09:29 White Blood Count 7.2 x10^3/uL (4.0-11.0) 7.4 x10^3/uL (4.0-11.0) Red Blood Count 4.41 x10^6/uL (3.50-5.40) 4.47 x10^6/uL (3.50-5.40) Hemoglobin 7.8 g/dL (12.0-15.5) 7.8 g/dL (12.0-15.5) Hematocrit 26.4 % (36.0-47.0) 27.1 % (36.0-47.0) Mean Corpuscular Volume 60 fL (79-100) 61 fL (79-100) Mean Corpuscular Hemoglobin 18 pg (25-35) 18 pg (25-35) Mean Corpuscular Hemoglobin Concent 30 g/dL (31-37) 29 g/dL (31-37) Red Cell Distribution Width 31.1 % (11.5-14.5) 30.2 % (11.5-14.5) Platelet Count 176 x10^3/uL (140-400) 181 x10^3/uL (140-400) Neutrophils (%) (Auto) 72 % (31-73) Lymphocytes (%) (Auto) 20 % (24-48) Monocytes (%) (Auto) 7 % (0-9) Eosinophils (%) (Auto) 0 % (0-3) Basophils (%) (Auto) 1 % (0-3) Neutrophils # (Auto) 5.4 x10^3/uL (1.8-7.7) Lymphocytes # (Auto) 1.5 x10^3/uL (1.0-4.8) Monocytes # (Auto) 0.5 x10^3/uL (0.0-1.1) Eosinophils # (Auto) 0.0 x10^3/uL (0.0-0.7) Basophils # (Auto) 0.0 x10^3/uL (0.0-0.2) Sodium Level 140 mmol/L (136-145) Potassium Level 3.8 mmol/L (3.5-5.1) Chloride Level 106 mmol/L (98-107) Carbon Dioxide Level 24 mmol/L (21-32) Anion Gap 10 (6-14) Blood Urea Nitrogen 9 mg/dL (7-20) Creatinine 0.7 mg/dL (0.6-1.0) Estimated GFR (Cockcroft-Gault) 90.5 BUN/Creatinine Ratio 13 (6-20) Glucose Level 90 mg/dL (70-99) Calcium Level 8.1 mg/dL (8.5-10.1) Total Bilirubin 0.4 mg/dL (0.2-1.0) Aspartate Amino Transf (AST/SGOT) 88 U/L (15-37) Alanine Aminotransferase (ALT/SGPT) 132 U/L (14-59) Alkaline Phosphatase 105 U/L (46-116) Total Protein 6.6 g/dL (6.4-8.2) Albumin 2.9 g/dL (3.4-5.0) Albumin/Globulin Ratio 0.8 (1.0-1.7) Coronavirus (COVID-19)(PCR) Not detected (NOT DETECTD) Influenza Type A Antigen Negative (NEGATIVE) Influenza Type B Antigen Negative (NEGATIVE) SARS-CoV-2 Antigen (Rapid) Negative (NEGATIVE) Laboratory Tests Test 05/19/21 09:29 Coronavirus (COVID-19)(PCR) Not detected (NOT DETECTD) Influenza Type A Antigen Negative (NEGATIVE) Influenza Type B Antigen Negative (NEGATIVE) SARS-CoV-2 Antigen (Rapid) Negative (NEGATIVE) Problem List Problems Medical Problems: (1) Acute cholecystitis Status: Acute (2) Anemia affecting 10th Status: Acute Assessment/Plan anemia, outpt fu labs noted with rise in AST/ALT gi following no current surgical plans chart, round 15min Justicifation of Admission Dx: Justifications for Admission: Justification of Admission Dx: Yes AVA JACOBSON MD 05/20/21 1101: SURGICAL PROGRESS NOTE Assessment/Plan Pt seen and examined. Agree with Ms. Quintero's note Pt without c/o, jannet diet abd soft, NTTP OK to d/c and f/u as output pending anemia w/u SAHIL QUINTERO APRN May 20, 2021 08:56 AVA JACOBSON MD May 20, 2021 11:01
--- NOTE | 2021-05-20 10:11 | NUR ---
SW following. Discussed with RN, pt from home, room air, regular diet, COVID-19 negative. GI and Surgery following. Med Assist following for self pay status. RN anticipates discharge home today. SW will continue to follow.
[2021-05-20 11:00] VITALS: BP 120/57
--- NOTE | 2021-05-20 11:15 | PDOC ---
Date of Service: DATE: 05/20/21 TIME: 11:10 Subjective: Subjective: Hoping to go home today. Objective: Objective: D/w nurse - possible DC today after lab recheck. Vital Signs: Vital Signs Date Time Temp Pulse Resp B/P (MAP) Pulse Ox O2 Delivery O2 Flow Rate FiO2 05/20/21 07:50 Room Air 05/20/21 07:00 97.9 60 18 123/67 (85) 96 97.9 Imaging: CT A/P IMPRESSION: 1. Overall findings may represent early acute calculus cholecystitis. Other differential consideration includes acute hepatitis with reactive changes of the gallbladder. Clinical correlation is advised and may consider nuclear HIDA scan, as warranted. 2. Benign-appearing 4.5 cm right adnexal cyst. Benign, no follow-up required. Abd US FINDINGS: LIVER: SIZE (LENGTH): 15 cm. ECHOGENICITY: Normal PARENCHYMA: Homogeneous echotexture. No discrete focal lesion. INTRAHEPATIC BILE DUCTS: Nondilated. PORTAL VEIN: Patent with normal hepatopedal flow. GALLBLADDER: GALLBLADDER WALL THICKNESS: 6 mm MORPHOLOGY: Gallbladder hydrops. Asymmetric wall thickening. No significant pericholecystic free fluid. LUMEN: Cholelithiasis the gallbladder neck. COMMON BILE DUCT DIAMETER: 2.5 mm. RIGHT KIDNEY: MEASURES: 12.5 cm in length. MORPHOLOGY/PARENCHYMA: Normal corticomedullary differentiation with no shadowing calculus or discrete masses. COLLECTING SYSTEM: No hydronephrosis. PANCREAS: VISUALIZED PORTIONS: Head and proximal body. APPEARANCE: Within normal limits. OTHER: RETROPERITONEUM, INFERIOR VENA CAVA: Normal caliber. AORTA: Normal caliber. FLUID:No free fluid. IMPRESSION: Gallbladder hydrops with asymmetric wall thickening and large cholelithiasis the neck. No significant pericholecystic fluid. Findings equivocal for acute calculus cholecystitis. PE: GEN: NAD LUNGS: CTAB HEART: RRR ABD: NABS, S/ND/NT NEURO/PSYCH: A & O 3 A/P: Abd pain - resolved Cholelithiasis MICHELLE, elevated AST and ALT Menorrhagia -- Interval labs pending. Dc per primary on iron. F/u w/ [employer] and surgery as outpt. Will contact to schedule outpt EGD and colonoscopy. Justicifation of Admission Dx: Justifications for Admission: Justification of Admission Dx: Yes YUMIKO RODRÍGUEZ May 20, 2021 11:15
[2021-05-20 11:18] LABS: BASO # 0.1 x10^3/uL (0.0-0.2); BASO % 1 % (0-3); EOS # 0.1 x10^3/uL (0.0-0.7); EOS % 1 % (0-3); HEMATOCRIT 29.5 % (36.0-47.0); HEMOGLOBIN 8.6 g/dL (12.0-15.5); LYMPH # 1.4 x10^3/uL (1.0-4.8); LYMPH % 19 % (24-48); MEAN CORPUSCULAR HEMOGLOBIN 17 pg (25-35); MEAN CORPUSCULAR HGB CONC 29 g/dL (31-37); MEAN CORPUSCULAR VOLUME 60 fL (79-100); MONO # 0.5 x10^3/uL (0.0-1.1); MONO % 7 % (0-9); NEUT # 5.3 x10^3/uL (1.8-7.7); NEUT % 72 % (31-73); PLATELET COUNT 196 x10^3/uL (140-400); RED BLOOD COUNT 4.93 x10^6/uL (3.50-5.40); RED CELL DISTRIBUTION WIDTH 31.4 % (11.5-14.5); WHITE BLOOD COUNT 7.4 x10^3/uL (4.0-11.0)
[2021-05-20 11:35] LABS: ALBUMIN 3.4 g/dL (3.4-5.0); ALBUMIN/GLOBULIN RATIO 0.9 (1.0-1.7); CALCIUM 8.5 mg/dL (8.5-10.1); CREATININE 0.9 mg/dL (0.6-1.0); GFR 67.7; POTASSIUM 3.9 mmol/L (3.5-5.1); TOTAL BILIRUBIN 0.4 mg/dL (0.2-1.0); TOTAL PROTEIN 7.2 g/dL (6.4-8.2)
--- NOTE | 2021-05-20 11:50 | PDOC ---
PAPER REELER PROGRESS NOTE Date of Service: DATE: 05/20/21 TIME: 11:49 Subjective: Pt feels about the same. Wonders if she would be able to go home today. Explained that would be up to surgery Objective: Vital Signs: Vital Signs Date Time Temp Pulse Resp B/P (MAP) Pulse Ox O2 Delivery O2 Flow Rate FiO2 05/19/21 07:00 98.4 55 20 117/58 (77) 95 Room Air 98.4 Vital Signs Date Time Temp Pulse Resp B/P (MAP) Pulse Ox O2 Delivery O2 Flow Rate FiO2 05/20/21 07:50 Room Air 05/20/21 07:00 97.9 60 18 123/67 (85) 96 97.9 Labs: Laboratory Tests Test 05/20/21 11:03 White Blood Count 7.4 x10^3/uL (4.0-11.0) Red Blood Count 4.93 x10^6/uL (3.50-5.40) Hemoglobin 8.6 g/dL (12.0-15.5) L Hematocrit 29.5 % (36.0-47.0) L Mean Corpuscular Volume 60 fL (79-100) L Mean Corpuscular Hemoglobin 17 pg (25-35) L Mean Corpuscular Hemoglobin Concent 29 g/dL (31-37) L Red Cell Distribution Width 31.4 % (11.5-14.5) H Platelet Count 196 x10^3/uL (140-400) Neutrophils (%) (Auto) 72 % (31-73) Lymphocytes (%) (Auto) 19 % (24-48) L Monocytes (%) (Auto) 7 % (0-9) Eosinophils (%) (Auto) 1 % (0-3) Basophils (%) (Auto) 1 % (0-3) Neutrophils # (Auto) 5.3 x10^3/uL (1.8-7.7) Lymphocytes # (Auto) 1.4 x10^3/uL (1.0-4.8) Monocytes # (Auto) 0.5 x10^3/uL (0.0-1.1) Eosinophils # (Auto) 0.1 x10^3/uL (0.0-0.7) Basophils # (Auto) 0.1 x10^3/uL (0.0-0.2) Sodium Level 142 mmol/L (136-145) Potassium Level 3.9 mmol/L (3.5-5.1) Chloride Level 107 mmol/L (98-107) Carbon Dioxide Level 25 mmol/L (21-32) Anion Gap 10 (6-14) Blood Urea Nitrogen 5 mg/dL (7-20) L Creatinine 0.9 mg/dL (0.6-1.0) Estimated GFR (Cockcroft-Gault) 67.7 BUN/Creatinine Ratio 6 (6-20) Glucose Level 85 mg/dL (70-99) Calcium Level 8.5 mg/dL (8.5-10.1) Total Bilirubin 0.4 mg/dL (0.2-1.0) Aspartate Amino Transferase (AST) 49 U/L (15-37) H Alanine Aminotransferase (ALT) 114 U/L (14-59) H Alkaline Phosphatase 117 U/L (46-116) H Total Protein 7.2 g/dL (6.4-8.2) Albumin 3.4 g/dL (3.4-5.0) Albumin/Globulin Ratio 0.9 (1.0-1.7) L Laboratory Tests 05/20/21 11:03 Laboratory Tests 05/20/21 11:03 Laboratory Tests 05/20/21 11:03 Physical Exam: GENERAL: No apparent distress. Alert and oriented. HEENT: Head normocephalic, atraumatic. NECK: Supple LUNGS: Clear to auscultation. HEART: RRR, S1, S2 present, pulses intact ABDOMEN: Soft, positive bowel sounds. EXTREMITIES: No cyanosis or edema. NEUROLOGIC: Normal speech, normal tone PSYCHIATRIC: Normal affect, normal mood. SKIN: No ulceration. Assessment & Plan: A/P 46y who was admitted for abd pain 1.) Anemia Hgb 5.6 -> 2U pRBC -> 7.8 -> 8.6. Pt unsure the source. Tub Tender and GI following. May perform outpt eval. 2.) Menorrhagia Since the pt is not actively bleeding she does not need to start anything now, but would send her home on a Rx for a 10 day course of Provera. She would also need to f/u in the office in a wk. 3.) Right ovarian cyst simple 4.5 cm. No intervention necessary. 4.) Symptomatic cholelithiasis improved since admission. LFTs with a rise yesterday. Management per Gen Surg. 5.) Will cont to follow FRANTZ NYE MD May 20, 2021 11:49
--- NOTE | 2021-05-20 15:51 | NUR ---
Discharge Note" Patient was discharged home with self care. Patients IV was discontinued without any complications per RN. Patient was given discharge summary/instructions, follow-ups and educational material. Patient questions and concerns answered. Patients new prescriptions for Iron and Provera is going to be sent in by Dr. Le, patient aware. Patient was taken down to ER entrance via wheelchair with all personal belongings accompanied by [facility], where patients daughter was waiting for her to take her home.
[2021-05-21] MEDS ORDERED: MEDR5TAB PO (12:20)
== END 2021-05-20 15:54 | disposition home or self-care (01) | DRG 445 ==
LOC: ER 01:49 → 5 NORTH 05:00
PROVIDERS: ADMIT Internal Medicine; ATTEND Internal Medicine
PROC: 30233N1 Transfusion of Nonautologous Red Blood Cells into Peripheral Vein, Percutaneous Approach (ICD-10-PCS; principal; 2021-05-18)
DX: K80.00 Calculus of gallbladder with acute cholecystitis without obstruction (principal); K82.1 Hydrops of gallbladder; D50.9 Iron deficiency anemia, unspecified; N92.0 Excessive and frequent menstruation with regular cycle; Z82.49 Family history of ischemic heart disease and other diseases of the circulatory system; Z20.822 Contact with and (suspected) exposure to COVID-19; N83.201 Unspecified ovarian cyst, right side; E66.9 Obesity, unspecified; Z68.35 Body mass index [BMI] 35.0-35.9, adult
CPT/HCPCS: 36415; 36430; 74177; 76705; 80053; 81001; 81025; 83540; 83550; 83605; 83655; 83690; 85025; 85027; 86850; 86870; 86900; 86901; 86902; 86920; 86922; 87428; 96361; 96374; 96375; C9113; J1756; J2270; J2405; J2543; J3010; J7030; J7050; P9016; Q9967; U0003; 99285-25; G0378